=== PATIENT | female | born 1960 | race Caucasian/White ===

== ENCOUNTER 2022-03-05 11:45 | Observation (INO) | payer BC ==
[2022-03-05 13:18] LABS: Basophils # (A) 0.1 k/uL (0-0.2); Basophils % (A) 1 %; Eosinophils # (A) 0.2 k/uL (0-0.7); Eosinophils % (A) 3 %; HCT 43.1 % (34.0-46.0); HGB 14.4 gm/dL (11.4-16.0); Lymphocytes # (A) 1.6 k/uL (1.0-4.8); Lymphocytes % (A) 19 %; MCH 30.4 pg (25.0-35.0); MCHC 33.4 g/dL (31.0-37.0); Monocytes % (A) 13 %; Neutrophils # (A) 5.1 k/uL (1.3-7.7); Neutrophils % (A) 63 %; Platelet Count 311 k/uL (150-450); RBC 4.74 m/uL (3.80-5.40); WBC 8.1 k/uL (3.8-10.6)
--- NOTE | 2022-03-05 13:24 | XR ---
EXAMINATION TYPE: XR chest 2V DATE OF EXAM: 03/05/2022 COMPARISON: None INDICATION: Chest wall lump and edema TECHNIQUE: Frontal and lateral views of the chest are obtained. FINDINGS: The heart size is normal. The pulmonary vasculature is normal. The lungs are clear. IMPRESSION: 1. No acute pulmonary process.
[2022-03-05 13:43] LABS: Appearance,Urine Clear (Clear); Bilirubin,Urine Negative (Negative); Blood,Urine Negative (Negative); Color,Urine Light Yellow; Glucose,Urine (UA) Negative (Negative); Ketones,Urine Negative (Negative); Leukocyte Esterase,Urine Trace (Negative); Nitrite,Urine Negative (Negative); Protein,Urine Negative (Negative); RBC,Urine <1 /hpf (0-5); Specific Gravity,Urine 1.006 (1.001-1.035); Urobilinogen,Urine <2.0 mg/dL (<2.0); WBC,Urine <1 /hpf (0-5)
[2022-03-05 14:28] LABS: ALT 18 U/L (4-34); AST 20 U/L (14-36); African American GFR (CKD) >90 (>60 ml/min/1.73 sqM); Albumin 3.2 g/dL (3.5-5.0); Alkaline Phosphatase 116 U/L (38-126); Anion Gap 4 mmol/L; Blood Urea Nitrogen 14 mg/dL (7-17); Calcium 8.3 mg/dL (8.4-10.2); Carbon Dioxide 35 mmol/L (22-30); Chloride 95 mmol/L (98-107); Creatine Kinase 24 U/L (30-135); Glucose 105 mg/dL (74-99); Lipase 113 U/L (23-300); Magnesium 2.5 mg/dL (1.6-2.3); Non-African American GFR(CKD) >90 (>60 ml/min/1.73 sqM); Potassium 3.4 mmol/L (3.5-5.1); Sodium 134 mmol/L (137-145); Total Bilirubin 0.7 mg/dL (0.2-1.3); Total Protein 5.5 g/dL (6.3-8.2)
--- NOTE | 2022-03-05 15:09 | CT ---
CT CHEST FOR PULMONARY EMBOLISM. EXAMINATION TYPE: CT angio chest DATE OF EXAM: 03/05/2022 INDICATION: pe CT DLP: 312.4 mGycm, Automated exposure control for dose reduction was used. CONTRAST: Patient injected with 60 mL of Isovue 370. COMPARISON: TECHNIQUE: CT of the chest is performed on a spiral scan at 2 mm thick sections. Study is performed with intravenous contrast timed for evaluation for pulmonary embolism. This will limit additional po rtions of the evaluation. 3-D MIP images reconstructed by the technologist are reviewed on the compu ter in the coronal and sagittal planes. FINDINGS: No persistent filling defects are evident to suggest an acute pulmonary embolism. No mediastinal or hilar adenopathy enlarged by CT criteria is evident. The ascending aorta diameter at the level of the main pulmonary artery is 3.2 cm. The main pulmonary artery diameter at the bifur cation is 2.3 cm. There is a 0.3 cm nodule in the periphery of the anterolateral left upper lobe. There is a 0.3 cm nodule in the periphery of the right upper lobe. There is an adjacent 0.4 cm nodule . Slightly more superior there is an additional punctate nodule in the periphery right upper lobe dangelo suring 0.2 cm. There is a 0.8 x 1.1 cm solid nodule in the peripheral anterolateral right upper lobe. Series 406 sharri ge 49. Punctate nodule posterior lateral right mid lung. Series [address] section through the upper abdomen are unremarkable. IMPRESSIONS: 1. No acute pulmonary embolism. 2. Multiple scattered small nodules. The largest nodule is in the anterolateral right upper lobe leighann uring 1.1 x 0.8 cm. Consider additional evaluation with PET/CT.
[2022-03-05] MEDS ORDERED: HYDROmorphone 1 MG/ML 1 ML SYRINGE IVP STA (16:10)
--- NOTE | 2022-03-05 16:27 | ED ---
Extremity Problem HPI - General Chief complaint: Extremity Problem,Nontraumatic Stated complaint: edema Time Seen by Provider: 03/05/22 12:25 Source: patient Mode of arrival: wheelchair Limitations: no limitations - History of Present Illness Initial comments: 62-year-old female with no history of CHF no history of any other medical issues per se recurring heart or pulmonary who complains of 2 days of progressive swelling of both lower extremities also not progressive the left upper extremity. No fevers chills nausea vomiting sweats she states she does have pain she was again repentant does not seem to be helping the pain she also complains of a swollen area toward the sternoclavicular joint on the left also there for perhaps couple days. She also states she had decreased oral intake recently no fevers chills nausea vomiting sweats however she also states she had a history of a pulmonary nodule that was evaluated at one point. No other cu rrent complaints or modifying factors MD Complaint: extremity swelling - Related Data Home Medications Medication Instructions Recorded Confirmed Albuterol Sulfate [Ventolin HFA] 2 puff INHALATION RT-Q6H PRN 03/05/22 03/05/22 Gabapentin [Neurontin] 600 mg PO TID 03/05/22 03/05/22 Meloxicam [Mobic] 15 mg PO DAILY 03/05/22 03/05/22 methocarbamoL [Robaxin] 500 mg PO Q8H PRN 03/05/22 03/05/22 Allergies Allergy/AdvReac Type Severity Reaction Status Date / Time celecoxib [From Celebrex] Allergy Rash/Hives Verified 03/05/22 15:17 Review of Systems ROS Statement: Those systems with pertinent positive or pertinent negative responses have been documented in the HPI. ROS Other: All systems not noted in ROS Statement are negative. Past Medical History Past Medical History: Osteoarthritis (OA) Additional Past Medical History / Comment(s): hypokalemia; DJD History of Any Multi-Drug Resistant Organisms: None Reported Past Surgical History: Cholecystectomy Past Psychological History: No Psychological Hx Reported Smoking Status: Current every day smoker Past Alcohol Use History: None Reported Past Drug Use History: None Reported, Marijuana General Exam - General Exam Comments Initial Comments: This is a well little pulmonary awake alert oriented 4 female Limitations: no limitations General appearance: alert, in no apparent distress Head exam: Present: atraumatic, normocephalic, normal inspection Eye exam: Present: normal appearance, PERRL, EOMI. Absent: scleral icterus, conjunctival injection, periorbital swelling ENT exam: Present: normal exam, mucous membranes moist Neck exam: Present: normal inspection, full ROM, other. Absent: tenderness, meningismus, lymphadenopathy Respiratory exam: Present: normal lung sounds bilaterally. Absent: respiratory distress, wheezes, rales, rhonchi, stridor Cardiovascular Exam: Present: regular rate, normal rhythm, normal heart sounds. Absent: systolic murmur, diastolic murmur, rubs, gallop, clicks GI/Abdominal exam: Present: soft, normal bowel sounds. Absent: distended, tenderness, guarding, rebound, rigid Extremities exam: Present: normal inspection, full ROM, normal capillary refill, pedal edema (Pila edema bilaterally up to both knees additionally left hand and forearm with animal edema no tenderness on palpation tenderness. Capillary refills less than 2 seconds.). Absent: tenderness, joint swelling, calf tenderness Back exam: Present: normal inspection Neurological exam: Present: alert, oriented X3, CN II-XII intact Psychiatric exam: Present: normal affect, normal mood Skin exam: Present: warm, dry, intact, normal color. Absent: rash Course Vital Signs 03/05/22 03/05/22 03/05/22 11:55 13:00 14:00 Temperature 98.9 F Pulse Rate 96 80 Respiratory 18 18 18 Rate Blood Pressure 139/82 140/76 O2 Sat by Pulse 99 98 Oximetry 03/05/22 15:37 Temperature Pulse Rate 78 Respiratory 18 Rate Blood Pressure 141/80 O2 Sat by Pulse 98 Oximetry - Reevaluation(s) Reevaluation #1: 03/05/22 16:28 Chest x-ray reviewed by me and interpreted negative for acute processes do the elevated d-dimer and the patient did have a CAT scan CT angios done. Interpreted by me no evidence of PE however pulmonary nodules are noted to be present this is confirmed on radiology read. Medical Decision Making - Medical Decision Making I did discuss the findings with the patient family and also with Dr. Mcdermott the patient be admitted cardiology and pulmonary consultation. The troponin was elevated though no evidence of EKG changes. CT showed evidence of pulmonary nodules. Sound reviewed and seen by me no evidence of DVT evidence of left popliteal cyst. - Lab Data Result diagrams: 03/05/22 12:28 03/05/22 13:59 Lab Results 03/05/22 03/05/22 03/05/22 Range/Units 12:28 12:28 12:28 WBC 8.1 (3.8-10.6) k/uL RBC 4.74 (3.80-5.40) m/uL Hgb 14.4 (11.4-16.0) gm/dL Hct 43.1 (34.0-46.0) % MCV 91.0 (80.0-100.0) fL MCH 30.4 (25.0-35.0) pg MCHC 33.4 (31.0-37.0) g/dL RDW 13.0 (11.5-15.5) % Plt Count 311 (150-450) k/uL MPV 8.0 Neutrophils % 63 % Lymphocytes % 19 % Monocytes % 13 % Eosinophils % 3 % Basophils % 1 % Neutrophils # 5.1 (1.3-7.7) k/uL Lymphocytes # 1.6 (1.0-4.8) k/uL Monocytes # 1.0 (0-1.0) k/uL Eosinophils # 0.2 (0-0.7) k/uL Basophils # 0.1 (0-0.2) k/uL D-Dimer 2.67 H (<0.60) mg/L FEU Sodium (137-145) mmol/L Potassium (3.5-5.1) mmol/L Chloride (98-107) mmol/L Carbon Dioxide (22-30) mmol/L Anion Gap mmol/L BUN (7-17) mg/dL Creatinine (0.52-1.04) mg/dL Est GFR (CKD-EPI)AfAm (>60 ml/min/1.73 sqM) Est GFR (CKD-EPI)NonAf (>60 ml/min/1.73 sqM) Glucose (74-99) mg/dL Plasma Lactic Acid Yefri (0.7-2.0) mmol/L Calcium (8.4-10.2) mg/dL Magnesium (1.6-2.3) mg/dL Total Bilirubin (0.2-1.3) mg/dL AST (14-36) U/L ALT (4-34) U/L Alkaline Phosphatase (38-126) U/L Creatine Kinase (30-135) U/L Troponin I 0.042 H* (0.000-0.034) ng/mL NT-Pro-B Natriuret Pep pg/mL Total Protein (6.3-8.2) g/dL Albumin (3.5-5.0) g/dL Lipase (23-300) U/L TSH (0.465-4.680) mIU/L Urine Color Urine Appearance (Clear) Urine pH (5.0-8.0) Ur Specific Hercules (1.001-1.035) Urine Protein (Negative) Urine Glucose (UA) (Negative) Urine Ketones (Negative) Urine Blood (Negative) Urine Nitrite (Negative) Urine Bilirubin (Negative) Urine Urobilinogen (<2.0) mg/dL Ur Leukocyte Esterase (Negative) Urine RBC (0-5) /hpf Urine WBC (0-5) /hpf 03/05/22 03/05/22 03/05/22 Range/Units 12:28 13:15 13:59 WBC (3.8-10.6) k/uL RBC (3.80-5.40) m/uL Hgb (11.4-16.0) gm/dL Hct (34.0-46.0) % MCV (80.0-100.0) fL MCH (25.0-35.0) pg MCHC (31.0-37.0) g/dL RDW (11.5-15.5) % Plt Count (150-450) k/uL MPV Neutrophils % % Lymphocytes % % Monocytes % % Eosinophils % % Basophils % % Neutrophils # (1.3-7.7) k/uL Lymphocytes # (1.0-4.8) k/uL Monocytes # (0-1.0) k/uL Eosinophils # (0-0.7) k/uL Basophils # (0-0.2) k/uL D-Dimer (<0.60) mg/L FEU Sodium (137-145) mmol/L Potassium (3.5-5.1) mmol/L Chloride (98-107) mmol/L Carbon Dioxide (22-30) mmol/L Anion Gap mmol/L BUN (7-17) mg/dL Creatinine (0.52-1.04) mg/dL Est GFR (CKD-EPI)AfAm (>60 ml/min/1.73 sqM) Est GFR (CKD-EPI)NonAf (>60 ml/min/1.73 sqM) Glucose (74-99) mg/dL Plasma Lactic Acid Yefri 0.7 (0.7-2.0) mmol/L Calcium (8.4-10.2) mg/dL Magnesium (1.6-2.3) mg/dL Total Bilirubin (0.2-1.3) mg/dL AST (14-36) U/L ALT (4-34) U/L Alkaline Phosphatase (38-126) U/L Creatine Kinase (30-135) U/L Troponin I (0.000-0.034) ng/mL NT-Pro-B Natriuret Pep 183 pg/mL Total Protein (6.3-8.2) g/dL Albumin (3.5-5.0) g/dL Lipase (23-300) U/L TSH (0.465-4.680) mIU/L Urine Color Light Yellow Urine Appearance Clear (Clear) Urine pH 7.0 (5.0-8.0) Ur Specific Hercules 1.006 (1.001-1.035) Urine Protein Negative (Negative) Urine Glucose (UA) Negative (Negative) Urine Ketones Negative (Negative) Urine Blood Negative (Negative) Urine Nitrite Negative (Negative) Urine Bilirubin Negative (Negative) Urine Urobilinogen <2.0 (<2.0) mg/dL Ur Leukocyte Esterase Trace H (Negative) Urine RBC <1 (0-5) /hpf Urine WBC <1 (0-5) /hpf 03/05/22 Range/Units 13:59 WBC (3.8-10.6) k/uL RBC (3.80-5.40) m/uL Hgb (11.4-16.0) gm/dL Hct (34.0-46.0) % MCV (80.0-100.0) fL MCH (25.0-35.0) pg MCHC (31.0-37.0) g/dL RDW (11.5-15.5) % Plt Count (150-450) k/uL MPV Neutrophils % % Lymphocytes % % Monocytes % % Eosinophils % % Basophils % % Neutrophils # (1.3-7.7) k/uL Lymphocytes # (1.0-4.8) k/uL Monocytes # (0-1.0) k/uL Eosinophils # (0-0.7) k/uL Basophils # (0-0.2) k/uL D-Dimer (<0.60) mg/L FEU Sodium 134 L (137-145) mmol/L Potassium 3.4 L (3.5-5.1) mmol/L Chloride 95 L (98-107) mmol/L Carbon Dioxide 35 H (22-30) mmol/L Anion Gap 4 mmol/L BUN 14 (7-17) mg/dL Creatinine 0.55 (0.52-1.04) mg/dL Est GFR (CKD-EPI)AfAm >90 (>60 ml/min/1.73 sqM) Est GFR (CKD-EPI)NonAf >90 (>60 ml/min/1.73 sqM) Glucose 105 H (74-99) mg/dL Plasma Lactic Acid Yefri (0.7-2.0) mmol/L Calcium 8.3 L (8.4-10.2) mg/dL Magnesium 2.5 H (1.6-2.3) mg/dL Total Bilirubin 0.7 (0.2-1.3) mg/dL AST 20 (14-36) U/L ALT 18 (4-34) U/L Alkaline Phosphatase 116 (38-126) U/L Creatine Kinase 24 L (30-135) U/L Troponin I (0.000-0.034) ng/mL NT-Pro-B Natriuret Pep pg/mL Total Protein 5.5 L (6.3-8.2) g/dL Albumin 3.2 L (3.5-5.0) g/dL Lipase 113 (23-300) U/L TSH 1.060 (0.465-4.680) mIU/L Urine Color Urine Appearance (Clear) Urine pH (5.0-8.0) Ur Specific Hercules (1.001-1.035) Urine Protein (Negative) Urine Glucose (UA) (Negative) Urine Ketones (Negative) Urine Blood (Negative) Urine Nitrite (Negative) Urine Bilirubin (Negative) Urine Urobilinogen (<2.0) mg/dL Ur Leukocyte Esterase (Negative) Urine RBC (0-5) /hpf Urine WBC (0-5) /hpf - EKG Data -: EKG Interpreted by Me EKG shows normal: sinus rhythm, axis, intervals, QRS complexes, ST-T waves (EKG shows normal sinus rhythm a 75 ID interval 141 QRS duration 11 daily since QTC 368/397 this is a normal-appearing EKG it was read by me.) Rate: normal - Radiology Data Radiology results: report reviewed (Imaging read by me also report reviewed. Troponin nodules and I CAT scan no PE.), image reviewed Disposition Clinical Impression: Peripheral edema, Elevated troponin, Pulmonary nodules Disposition: ADMITTED IP TO THIS [facility] Condition: Stable Referrals: Nonstaff,Physician [Primary Care Provider] - 1-2 days Decision Date: 03/05/22 Decision Time: 16:00
--- NOTE | 2022-03-05 16:28 | US ---
EXAMINATION TYPE: US venous doppler duplex LE BI DATE OF EXAM: 03/05/2022 4:07 PM COMPARISON: NONE CLINICAL HISTORY: PT is suspected. Leg swelling SIDE PERFORMED: Bilateral TECHNIQUE: The lower extremity deep venous system is examined utilizing real time linear array sonog octavio with graded compression, doppler sonography and color-flow sonography. VESSELS IMAGED: Common Femoral Vein Deep Femoral Vein Greater Saphenous Vein * Femoral Vein Popliteal Vein Small Saphenous Vein * Proximal Calf Veins (* superficial vessels) Right Leg: Negative for DVT Left Leg: Negative for DVT, probable Valiente's Cyst= 4.1 x 1.0 x 2.7 cm IMPRESSION: 1. Bilateral lower extremity ultrasound negative for deep venous thrombosis. 2. Left popliteal cyst
[2022-03-05] MEDS ORDERED: ONDANSETRON 4 MG/2 ML VIAL IVP PRN (16:40)
[2022-03-05] MEDS ORDERED: ACETAMINOPHEN TAB 325 MG TAB PO PRN (16:40)
[2022-03-05] MEDS ORDERED: NALOXONE 0.4 MG/ML 1 ML VIAL IV PRN (16:40)
[2022-03-05] MEDS ORDERED: HEPARIN SODIUM 1,000 UN/ML (10ML VL) IV ONE (16:43)
[2022-03-05] MEDS ORDERED: ALBUTEROL NEBULIZED 2.5 MG/3 ML INHALATION PRN (16:43)
[2022-03-05] MEDS ORDERED: HEPARIN SOD,PORK IN 0.45% NACL 25,000 UNIT in 0.45% NACL 1 250ML.BAG IV SCH (16:45)
[2022-03-05] MEDS: SODIUM CHLORIDE 0.9% 1,000 ML IV SCH (18:06)
[2022-03-05] MEDS: GABAPENTIN 300 MG CAP PO SCH (20:12)
[2022-03-05 22:20] VITALS: TEMP 98.6
[2022-03-05] MEDS: HEPARIN SODIUM 1,000 UN/ML (10ML VL) IV PRN (23:00)
[2022-03-06] MEDS: methocarbamoL 500 MG TAB PO PRN (03:43)
[2022-03-06] MEDS: SODIUM CHLORIDE 0.9% 1,000 ML IV SCH ×2 (03:43→20:04)
[2022-03-06 06:41] LABS: Basophils % (A) 1 %; Eosinophils # (A) 0.2 k/uL (0-0.7); Eosinophils % (A) 3 %; HCT 40.7 % (34.0-46.0); HGB 13.7 gm/dL (11.4-16.0); Lymphocytes # (A) 1.2 k/uL (1.0-4.8); Lymphocytes % (A) 17 %; MCH 30.8 pg (25.0-35.0); MCHC 33.6 g/dL (31.0-37.0); MCV 91.4 fL (80.0-100.0); Mean Platelet Volume 7.5; Monocytes # (A) 0.7 k/uL (0-1.0); Monocytes % (A) 11 %; Neutrophils # (A) 4.6 k/uL (1.3-7.7); Neutrophils % (A) 67 %; Platelet Count 269 k/uL (150-450); RBC 4.45 m/uL (3.80-5.40); WBC 6.9 k/uL (3.8-10.6)
[2022-03-06 06:59] LABS: INR 0.9 (<1.2); Prothrombin Time 9.9 sec (9.0-12.0)
[2022-03-06] MEDS: HEPARIN SODIUM 1,000 UN/ML (10ML VL) IV PRN (07:08)
[2022-03-06] MEDS: MELOXICAM 7.5 MG TAB PO SCH (08:17)
[2022-03-06] MEDS: GABAPENTIN 300 MG CAP PO SCH ×3 (08:18→20:04)
--- NOTE | 2022-03-06 08:23 | P.CRDCN ---
History of Present Illness Consult date: 03/06/22 History of present illness: History of Present Illness: The patient is a 62-year-old female with a known history of chronic tobacco use who presents with progressive peripheral edema. The patient started complaining of muscular skeletal left-sided neck discomfort, was seen by her physician and he initiated treatment, she started been complaining of lower extremities edema and subsequently some left upper extremity edema. She came into the emergency room and in the emergency room her troponin was noted to be mildly elevated. She denies any chest discomfort or prior history of obstructive coronary artery disease. She has no dyspnea on exertion, no recent dizziness or syncope. She had an episode of dizziness in the past and had an event monitor that was unre markable according to her. Her level of activity has not changed. She denies any history of PND, orthopnea or arrhythmia. She had a stress test many years ago that according to her was unremarkable. She has a history of chronic tobacco use. Her troponin was 0.08 and 0.09. Her chest CT showed multiple scattered nodules but no evidence of pulmonary embolism. She was in sinus mechanism. Medications: Robaxin, Mobic, Ventolin, Neurontin Review of Systems: Respiratory: No history of asthma, bronchitis or recent cough. GI: No nausea or vomiting . No history of peptic ulcer disease. No recent GI bleed. : No hematuria or dysuria. Nervous System: No stroke or seizure. Physical Examination: 62-year-old female, alert and oriented no apparent distress,Blood pressure 140/60, Heart rate 70 Head: Normocephalic. Eyes: Sclerae nonicteric. Neck: Good carotid upstroke, no bruit, no jugular venous distention. Lungs: Clear to auscultation. Heart: Regular rate and rhythm, S1-S2, no S3, no rub. No murmur. Left sided neck discomfort and arm discomfort with change in position Abdomen: Soft nontender, positive bowel sounds no organomegaly. Extremities: Trace edema, intact distal pulses. Labs: Hemoglobin 13.7, white blood cell 6.9. BUN 14, creatinine 0.55. Potassium 3.4. Troponin 0.08 and 0.09. Chest x-ray with no acute infiltrate. Computed tomography scan of the chest showed multiple scattered nodules the largest measuring 1.1 x 0.8 cm in the anterolateral right upper lobe Impression: 1. Mild troponin elevation of unclear etiology, no evidence to suggest acute coronary syndrome, patient has no chest discomfort or dyspnea 2. Lung nodules in a smoker, further evaluation will be needed 3. Peripheral edema but no evidence of CHF on examination 4. Chronic tobacco use 5. Muscular skeletal neck discomfort Plan: 1. Obtain an echocardiogram with Doppler 2. Obtain an NT proBNP 3. Stop IV heparin 4. Pulmonary consultations 5. Depending on her progress the patient may require a stress test to further evaluate her cardiac status 6. Depending on the results of the testing further recommendations will be made. Thank you for this consult we will follow with you. Past Medical History Past Medical History: Osteoarthritis (OA) Additional Past Medical History / Comment(s): hypokalemia; DJD History of Any Multi-Drug Resistant Organisms: None Reported Past Surgical History: Cholecystectomy Past Anesthesia/Blood Transfusion Reactions: No Reported Reaction Smoking Status: Current every day smoker - Past Family History Father Family Medical History: No Reported History Medications and Allergies Home Medications Medication Instructions Recorded Confirmed Type Albuterol Sulfate [Ventolin HFA] 2 puff INHALATION RT-Q6H PRN 03/05/22 03/05/22 History Gabapentin [Neurontin] 600 mg PO TID 03/05/22 03/05/22 History Meloxicam [Mobic] 15 mg PO DAILY 03/05/22 03/05/22 History methocarbamoL [Robaxin] 500 mg PO Q8H PRN 03/05/22 03/05/22 History Allergies Allergy/AdvReac Type Severity Reaction Status Date / Time celecoxib [From Celebrex] Allergy Rash/Hives Verified 03/05/22 15:17 Physical Exam Vitals: Vital Signs Temp Pulse Pulse Resp BP BP Pulse Ox 03/06/22 04:00 78 16 181/79 95 03/06/22 00:00 78 16 141/65 97 03/05/22 20:00 98.6 F 82 18 130/65 96 03/05/22 18:54 99.1 F 78 20 159/71 95 03/05/22 18:04 98.8 F 78 18 142/84 97 03/05/22 17:00 72 18 03/05/22 15:37 78 18 141/80 98 03/05/22 14:00 80 18 140/76 98 03/05/22 13:00 18 03/05/22 11:55 98.9 F 96 18 139/82 99 Intake and Output 03/05/22 03/06/22 03/06/22 22:59 06:59 14:59 Intake Total 333 1521.415 70.47 Balance 333 1521.415 70.47 Intake: Intake, IV Titration 1036.415 70.47 Amount Heparin Sod,Pork in 0.45% 36.415 70.47 NaCl 25,000 unit In 0.45 % NaCl 1 250ml.bag @ 12 UNITS/KG/HR 7.457 mls/hr IV .Q24H FRANCIS Rx#: [id number] Sodium Chloride 0.9% 1, 1000 000 ml @ 75 mls/hr IV . [id number] FRANCIS Rx#:[id number] Oral 333 [id number] Other: Voiding Method Toilet Toilet # Voids 2 Weight 62.142 kg Results 03/06/22 06:25 03/05/22 13:59 Cardiac Enzymes 03/05/22 03/05/22 03/05/22 Range/Units 12:28 13:59 18:34 AST 20 (14-36) U/L Troponin I 0.042 H* 0.080 H* (0.000-0.034) ng/mL 03/05/22 Range/Units 22:22 AST (14-36) U/L Troponin I 0.092 H* (0.000-0.034) ng/mL Coagulation 03/05/22 03/06/22 03/06/22 Range/Units 22:22 06:25 06:25 PT 9.9 (9.0-12.0) sec APTT 35.6 H 32.9 H (22.0-30.0) sec CBC 03/05/22 03/06/22 Range/Units 12:28 06:25 WBC 8.1 6.9 (3.8-10.6) k/uL RBC 4.74 4.45 (3.80-5.40) m/uL Hgb 14.4 13.7 (11.4-16.0) gm/dL Hct 43.1 40.7 (34.0-46.0) % Plt Count 311 269 (150-450) k/uL Comprehensive Metabolic Panel 03/05/22 Range/Units 13:59 Sodium 134 L (137-145) mmol/L Potassium 3.4 L (3.5-5.1) mmol/L Chloride 95 L (98-107) mmol/L Carbon Dioxide 35 H (22-30) mmol/L BUN 14 (7-17) mg/dL Creatinine 0.55 (0.52-1.04) mg/dL Glucose 105 H (74-99) mg/dL Calcium 8.3 L (8.4-10.2) mg/dL AST 20 (14-36) U/L ALT 18 (4-34) U/L Alkaline Phosphatase 116 (38-126) U/L Total Protein 5.5 L (6.3-8.2) g/dL Albumin 3.2 L (3.5-5.0) g/dL Current Medications Generic Name Dose Route Start Last Admin Trade Name Freq PRN Reason Stop Dose Admin Acetaminophen 650 mg 03/05/22 16:40 Acetaminophen Tab 325 Mg Tab PO Q6HR PRN Mild Pain or Fever > 100.5 Albuterol Sulfate 2.5 mg 03/05/22 16:43 Albuterol Nebulized 2.5 Mg/3 Ml INHALATION RT-Q6H PRN Shortness Of Breath Gabapentin 600 mg 03/05/22 22:00 03/05/22 20:12 Gabapentin 300 Mg Cap PO 600 mg TID FRANCIS Administration Heparin Sodium (Porcine) 0 unit 03/05/22 16:43 03/06/22 07:08 Heparin Sodium 1,000 Un/Ml (10ml Vl) IV 3,100 unit PER PROTOCOL PRN Administration Low PTT Protocol Sodium Chloride 1,000 mls @ 75 mls/hr 03/05/22 16:45 03/06/22 03:43 Saline 0.9% IV 75 mls/hr .[id number] FRANCIS Administration Heparin Sodium/Sodium Chloride 250 mls @ 7.457 mls/hr 03/05/22 16:45 03/06/22 07:06 25,000 unit/ Sodium Chloride IV 17 units/kg/hr .Q24H FRANCIS 10.564 mls/hr Titration Protocol 12 UNITS/KG/HR Meloxicam 15 mg 03/06/22 09:00 Meloxicam 7.5 Mg Tab PO DAILY FRANCIS Methocarbamol 500 mg 03/05/22 16:43 03/06/22 03:43 Methocarbamol 500 Mg Tab PO 500 mg Q8H PRN Administration Pain Naloxone HCl 0.2 mg 03/05/22 16:40 Naloxone 0.4 Mg/Ml 1 Ml Vial IV Q2M PRN Opioid Reversal Ondansetron HCl 4 mg 03/05/22 16:40 Ondansetron 4 Mg/2 Ml Vial IVP Q8HR PRN Nausea And Vomiting Intake and Output 03/05/22 03/06/22 03/06/22 22:59 06:59 14:59 Intake Total 333 1521.415 70.47 Balance 333 1521.415 70.47 Intake: Intake, IV Titration 1036.415 70.47 Amount Heparin Sod,Pork in 0.45% 36.415 70.47 NaCl 25,000 unit In 0.45 % NaCl 1 250ml.bag @ 12 UNITS/KG/HR 7.457 mls/hr IV .Q24H FRANCIS Rx#: [id number] Sodium Chloride 0.9% 1, 1000 000 ml @ 75 mls/hr IV . [id number] FRANCIS Rx#:[id number] Oral 333 [id number] Other: Voiding Method Toilet Toilet # Voids 2 Weight 62.142 kg 03/06/22 06:25 03/05/22 13:59
[2022-03-06] MEDS: ASPIRIN 81 MG PO SCH (08:31)
--- NOTE | 2022-03-06 11:12 | P.HPIM ---
History of Present Illness H&P Date: 03/06/22 Chief Complaint: Leg swelling Patient is a 62-year-old female with a known history of osteoarthritis, currently with a smoker and degenerative joint disease presents to ER with the complaints of worsening leg swelling. Patient has been having swelling of both left greater than right The lateral lower extremity duplex scan is negative for DVT Chest x-ray showed no acute cardio pulmonary process CTA chest showed no acute pulmonary embolism. There was scattered small nod ules. The largest nodule is the anterolateral right upper lobe measuring 1.1 x 0.8 cm. Consider additional evaluation with PET CT. Laboratory data WBC 8.1 hemoglobin 14.4 and platelets 311 d-dimer is 2.67 Sodium 134 potassium 3.4 chloride 95 bicarb is 75 BUN 14 and creatinine 0.55 and blood sugar is 105 Urinalysis is negative for infection. This is within normal limits. ProBNP is 183 Troponin 0.042, 0.080 and 0.092 Review of Systems Constitutional: Patient denies any fever or chills . No generalized weakness or weight loss. Abdomen: Patient denied nausea vomiting and diarrhea and abdominal pain. Cardiovascular: Patient denies any chest pain or short of breath no palpitations. Leg swelling. Left greater than right. Respiratory: patient denied any cough is from production. No shortness of breath Neurologic: Patient denied any numbness or tingling headache. Musculoskeletal: Patient denies any complaints of joint swelling or deformity. Complains of left-sided neck pain and shoulder pain Skin: Negative Psychiatric: Negative Endocrine: No heat or cold intolerance. No recent weight gain. Genitourinary: No dysuria or hematuria. All other 14 point ROS negative except the above Past Medical History Past Medical History: Osteoarthritis (OA) Additional Past Medical History / Comment(s): hypokalemia; DJD History of Any Multi-Drug Resistant Organisms: None Reported Past Surgical History: Cholecystectomy Past Anesthesia/Blood Transfusion Reactions: No Reported Reaction Smoking Status: Current every day smoker - Past Family History Father Family Medical History: No Reported History Medications and Allergies Home Medications Medication Instructions Recorded Confirmed Type Albuterol Sulfate [Ventolin HFA] 2 puff INHALATION RT-Q6H PRN 03/05/22 03/05/22 History Gabapentin [Neurontin] 600 mg PO TID 03/05/22 03/05/22 History Meloxicam [Mobic] 15 mg PO DAILY 03/05/22 03/05/22 History methocarbamoL [Robaxin] 500 mg PO Q8H PRN 03/05/22 03/05/22 History Allergies Allergy/AdvReac Type Severity Reaction Status Date / Time celecoxib [From Celebrex] Allergy Rash/Hives Verified 03/05/22 15:17 Physical Exam Vitals: Vital Signs Temp Pulse Pulse Resp BP BP Pulse Ox 03/06/22 08:20 81 03/06/22 08:19 81 17 167/78 96 03/06/22 04:00 78 16 181/79 95 03/06/22 00:00 78 16 141/65 97 03/05/22 20:00 98.6 F 82 18 130/65 96 03/05/22 18:54 99.1 F 78 20 159/71 95 03/05/22 18:04 98.8 F 78 18 142/84 97 03/05/22 17:00 72 18 03/05/22 15:37 78 18 141/80 98 03/05/22 14:00 80 18 140/76 98 03/05/22 13:00 18 03/05/22 11:55 98.9 F 96 18 139/82 99 Intake and Output 03/05/22 03/06/22 03/06/22 22:59 06:59 14:59 Intake Total 333 1521.415 487.47 Balance 333 1521.415 487.47 Intake: Intake, IV Titration 1036.415 70.47 Amount Heparin Sod,Pork in 0.45% 36.415 70.47 NaCl 25,000 unit In 0.45 % NaCl 1 250ml.bag @ 12 UNITS/KG/HR 7.457 mls/hr IV .Q24H [facility] Rx#: [id number] Sodium Chloride 0.9% 1, 1000 000 ml @ 75 mls/hr IV . [id number] [facility] Rx#:[id number] Oral 333 [id number] Other: Voiding Method Toilet Toilet Toilet # Voids 2 Weight 62.142 kg PHYSICAL EXAMINATION: Patient is lying in the bed comfortably, no acute distress, awake alert and oriented.. HEENT: Normocephalic. Neck is supple. Pupils reactive. Nostrils clear. Oral cavity is moist. Neck reveals no JVD, carotid bruits, or thyromegaly. CHEST EXAMINATION: Trachea is central. Symmetrical expansion. Lung pat clear to auscultation and percussion. CARDIAC: Normal S1, S2 with no gallops. No murmurs ABDOMEN: Soft. Bowel sounds normal. No organomegaly. No abdominal bruits. Extremities: Bilateral lower extremity trace edema. No clubbing or cyanosis Neurologically awake, alert, oriented x3 with well-coordinated movements. No focal deficits noted Skin: No rash or skin lesions. Psychiatric: Coperative. Nonsuicidal Musculoskeletal: No joint swelling or deformity. Normal range of motion. Results CBC & Chem 7: 03/06/22 06:25 03/05/22 13:59 Labs: Abnormal Lab Results - Last 24 Hours (Table) 03/05/22 03/05/22 03/05/22 Range/Units 12:28 12:28 13:15 APTT (22.0-30.0) sec D-Dimer 2.67 H (<0.60) mg/L FEU Sodium (137-145) mmol/L Potassium (3.5-5.1) mmol/L Chloride (98-107) mmol/L Carbon Dioxide (22-30) mmol/L Glucose (74-99) mg/dL Calcium (8.4-10.2) mg/dL Magnesium (1.6-2.3) mg/dL Creatine Kinase (30-135) U/L Troponin I 0.042 H* (0.000-0.034) ng/mL Total Protein (6.3-8.2) g/dL Albumin (3.5-5.0) g/dL Ur Leukocyte Esterase Trace H (Negative) 03/05/22 03/05/22 03/05/22 Range/Units 13:59 18:34 22:22 APTT (22.0-30.0) sec D-Dimer (<0.60) mg/L FEU Sodium 134 L (137-145) mmol/L Potassium 3.4 L (3.5-5.1) mmol/L Chloride 95 L (98-107) mmol/L Carbon Dioxide 35 H (22-30) mmol/L Glucose 105 H (74-99) mg/dL Calcium 8.3 L (8.4-10.2) mg/dL Magnesium 2.5 H (1.6-2.3) mg/dL Creatine Kinase 24 L (30-135) U/L Troponin I 0.080 H* 0.092 H* (0.000-0.034) ng/mL Total Protein 5.5 L (6.3-8.2) g/dL Albumin 3.2 L (3.5-5.0) g/dL Ur Leukocyte Esterase (Negative) 03/05/22 03/06/22 Range/Units 22:22 06:25 APTT 35.6 H 32.9 H (22.0-30.0) sec D-Dimer (<0.60) mg/L FEU Sodium (137-145) mmol/L Potassium (3.5-5.1) mmol/L Chloride (98-107) mmol/L Carbon Dioxide (22-30) mmol/L Glucose (74-99) mg/dL Calcium (8.4-10.2) mg/dL Magnesium (1.6-2.3) mg/dL Creatine Kinase (30-135) U/L Troponin I (0.000-0.034) ng/mL Total Protein (6.3-8.2) g/dL Albumin (3.5-5.0) g/dL Ur Leukocyte Esterase (Negative) Thrombosis Risk Factor Assmnt - DVT/VTE Prophylaxis DVT/VTE Prophylaxis: Pharmacologic Prophylaxis ordered - Choose All That Apply Each Factor Represents 1 point: Acute NH, Swollen legs (current) Other Risk Factors: No Each Risk Factor Represents 2 Points: Age 61-74 years Other congenital or acquired thrombophilia - If yes, enter type in comment: No Thrombosis Risk Factor Assessment Total Risk Factor Score: 4 Thrombosis Risk Factor Assessment Level: Moderate Risk Assessment and Plan Assessment: Shortness of breath without evidence of CHF or PE. BNP is not elevated. CTA negative. Leg swelling improved now.Duplex scan is Negative for DVT. Elevated troponin level. Rule out ACS. Lung nodules. Largest measuring 1.1 x 0.8 cm. Elevated d-dimer level. CTA negative for PE. Ongoing nicotine addiction Chronic neck pain and left shoulder pain. Likely musculoskeletal. Osteoarthritis and degenerative joint disease DVT prophylaxis Plan: Patient will be continued on telemetry monitoring. Started on heparin drip which has been discontinued. Patient was seen by cardiology. Unlikely ACS. 2- D echocardiogram was obtained. Patient was seen by pulmonary and recommended PET scan as outpatient. Continue with albuterol inhalation when necessary. Continue pain management and follow closely. Smoking cessation has been counseled extensively. Time with Patient: Greater than 30
--- NOTE | 2022-03-06 11:31 | P.CNPUL ---
History of Present Illness Consult date: 03/06/22 Requesting physician: Martin Mcdermott Reason for consult: other Chief complaint: Abnormal lab test. History of present illness: Pulmonary consult dated 03/06/2022. 62-year-old smoker, who I'm asked to see because of an abnormal D-dimer test. She apparently came in with complaints of lower extremity edema, and concerns about congestive heart failure. She apparently not been doing well for about 2 days prior to admission. She noticed swelling of her feet, ankles, and lower thigh area. Anyway, she denied fever, chills, nausea, vomiting, sweats, and she also denied any shortness of breath. She had a D-dimer test that was elevated. Dopplers were done of the lower extremities, which were negative for DVT. She also had a CT angiogram that was negative for pulmonary embolism. The computed tomography scan did show some abnormalities, and she will need outpatient evaluation. She has been smoking cigarettes for a number of years. She's currently on room air. She's getting saline at 75 mL an hour. She is on IV heparin as per cardiology. Her medical history is primarily positive for osteoarthritis. CBC is normal. PTT is 32.9. Sodium 134, potassium 3.4, chlorides 95, CO2 35, BUN 14, creatinine 0.55. Troponins were 0.080 and 0.092. N-terminal proBNP was 507. Urine was negative. CT angiogram showed some multiple scattered small nodules, the largest of which is in the right upper lobe, measuring about 1 cm. A PET scan was recommended. Review of Systems REVIEW OF SYSTEMS: CONSTITUTIONAL: [Negative.] NEUROLOGIC: [ Negative.] HEENT: [ Negative.] CARDIAC: Lower extremity edema. PULMONARY: [Negative.] GI: [Negative.] : [Negative.] RHEUMATOLOGIC: [ Negative.] IMMUNOLOGIC: [ Negative.] ENDOCRINE: [Negative. ] DERMATOLOGIC: [Negative.] Past Medical History Past Medical History: Osteoarthritis (OA) Additional Past Medical History / Comment(s): hypokalemia; DJD History of Any Multi-Drug Resistant Organisms: None Reported Past Surgical History: Cholecystectomy Past Anesthesia/Blood Transfusion Reactions: No Reported Reaction Smoking Status: Current every day smoker - Past Family History Father Family Medical History: No Reported History Medications and Allergies Home Medications Medication Instructions Recorded Confirmed Type Albuterol Sulfate [Ventolin HFA] 2 puff INHALATION RT-Q6H PRN 03/05/22 03/05/22 History Gabapentin [Neurontin] 600 mg PO TID 03/05/22 03/05/22 History Meloxicam [Mobic] 15 mg PO DAILY 03/05/22 03/05/22 History methocarbamoL [Robaxin] 500 mg PO Q8H PRN 03/05/22 03/05/22 History Allergies Allergy/AdvReac Type Severity Reaction Status Date / Time celecoxib [From Celebrex] Allergy Rash/Hives Verified 03/05/22 15:17 Physical Exam Osteopathic Statement: *. No significant issues noted on an osteopathic structural exam other than those noted in the History and Physical/Consult. Vitals: Vital Signs Temp Pulse Pulse Resp BP BP Pulse Ox 03/06/22 11:13 80 15 125/72 95 03/06/22 08:20 81 03/06/22 08:19 81 17 167/78 96 03/06/22 04:00 78 16 181/79 95 03/06/22 00:00 78 16 141/65 97 03/05/22 20:00 98.6 F 82 18 130/65 96 03/05/22 18:54 99.1 F 78 20 159/71 95 03/05/22 18:04 98.8 F 78 18 142/84 97 03/05/22 17:00 72 18 03/05/22 15:37 78 18 141/80 98 03/05/22 14:00 80 18 140/76 98 03/05/22 13:00 18 03/05/22 11:55 98.9 F 96 18 139/82 99 Intake and Output 03/05/22 03/06/22 03/06/22 22:59 06:59 14:59 Intake Total 333 1521.415 487.47 Balance 333 1521.415 487.47 Intake: Intake, IV Titration 1036.415 70.47 Amount Heparin Sod,Pork in 0.45% 36.415 70.47 NaCl 25,000 unit In 0.45 % NaCl 1 250ml.bag @ 12 UNITS/KG/HR 7.457 mls/hr IV .Q24H [facility] Rx#: [id number] Sodium Chloride 0.9% 1, 1000 000 ml @ 75 mls/hr IV . [id number] [facility] Rx#:[id number] Oral 333 [id number] Other: Voiding Method Toilet Toilet Toilet # Voids 2 Weight 62.142 kg No acute distress, oriented 3. Currently on room air. No respiratory difficulty. HEENT examination is grossly unremarkable. Neck supple. Full range of motion. No adenopathy thyromegaly or neck vein distention. Cardiovascular examination reveals regular rhythm rate. S1-S2 normal. No S3 or S4. No discernible murmur noted. Heart rate 80 bpm. Lungs reveal clear breath sounds. Breath sounds are equal bilaterally. No adventitious lung sounds including wheezes rhonchi or crackles. Room air saturation is 95-96%. Abdomen soft bowel sounds are heard. No masses or tenderness. Extremities are intact. No cyanosis or clubbing. Trace edema present. Skin is without rash or lesion. Neurologic examination is brief but nonfocal. Results - Laboratory Findings CBC and BMP: 03/06/22 06:25 03/05/22 13:59 PT/INR, D-dimer PT 9.9 sec (9.0-12.0) 03/06/22 06:25 INR 0.9 (<1.2) 03/06/22 06:25 D-Dimer 2.67 mg/L FEU (<0.60) H 03/05/22 12:28 Abnormal lab findings: Abnormal Labs 03/05/22 03/05/22 03/05/22 12:28 12:28 13:15 APTT D-Dimer 2.67 H Sodium Potassium Chloride Carbon Dioxide Glucose Calcium Magnesium Creatine Kinase Troponin I 0.042 H* Total Protein Albumin Ur Leukocyte Esterase Trace H 03/05/22 03/05/22 03/05/22 13:59 18:34 22:22 APTT D-Dimer Sodium 134 L Potassium 3.4 L Chloride 95 L Carbon Dioxide 35 H Glucose 105 H Calcium 8.3 L Magnesium 2.5 H Creatine Kinase 24 L Troponin I 0.080 H* 0.092 H* Total Protein 5.5 L Albumin 3.2 L Ur Leukocyte Esterase 03/05/22 03/06/22 22:22 06:25 APTT 35.6 H 32.9 H D-Dimer Sodium Potassium Chloride Carbon Dioxide Glucose Calcium Magnesium Creatine Kinase Troponin I Total Protein Albumin Ur Leukocyte Esterase - Diagnostic Findings Chest x-ray: image reviewed CT scan - chest: image reviewed Assessment and Plan Assessment: Elevated d-dimer, without evidence of DVT on Doppler, or pulmonary embolism on CT angiogram. Multiple small pulmonary nodules, which will need outpatient evaluation. History of ongoing tobacco use with nicotine addiction. Patient currently being evaluated by cardiology for non-ST segment elevation myocardial infarction. History of osteoarthritis. History of ongoing tobacco dependence/nicotine addiction. Plan: Plan dated 03/06/2022. The patient is counseled about the importance of smoking cessation. The patient will follow-up in the office with me, to evaluate further, the pulmonary nodules. The patient will likely benefit from a PET/CT fusion study. Additional recommendations and suggestions are forthcoming. The patient denies any respiratory issues. Prognosis is guarded. We will continue to follow. Time with Patient: Greater than 30
[2022-03-06] MEDS: HEPARIN SODIUM,PORCINE/PF 5,000 UNIT/0.5 ML SYRINGE SQ SCH ×2 (16:01→23:35)
[2022-03-06 16:02] LABS: Chol/HDL Ratio 3.31 Ratio; LDL Cholesterol,Calculated 124.2 mg/dL (0.0-131.0)
--- NOTE | 2022-03-06 16:36 | CA ---
Transthoracic Echo Report Name: Ana María Tom Age: 62 Gender: F : 1960 Exam Date: 03/06/2022 13:11 Exam Location: [facility] Ht (in): 61 Wt (lb): 137 Ordering Physician: Ralf Marcelo MD ([id number]) Attending/Referring Phys: Astrobiologist Mine Villalba RDCS Procedure CPT: Indications: edema Cardiac Hx: Technical Quality: Good Contrast 1: Total Dose (mL): Contrast 2: Total Dose (mL): MEASUREMENTS (Male / Female) Normal Values 2D ECHO LV Diastolic Diameter PLAX 4.8 cm 4.2 - 5.9 / 3.9 - 5.3 cm LV Systolic Diameter PLAX 3.2 cm IVS Diastolic Thickness 0.9 cm 0.6 - 1.0 / 0.6 - 0.9 cm LVPW Diastolic Thickness 1.0 cm 0.6 - 1.0 / 0.6 - 0.9 cm LV Relative Wall Thickness 0.4 RV Internal Dim ED PLAX 2.9 cm LA Systolic Diameter LX 3.2 cm 3.0 - 4.0 / 2.7 - 3.8 cm LA Volume 32.7 cm??? 18 - 58 / 22 - 52 cm??? M-MODE Aortic Root Diameter MM 3.0 cm MV E Point Septal Separation 0.6 cm AV Cusp Separation MM 1.9 cm DOPPLER AV Peak Velocity 158.3 cm/s AV Peak Gradient 10.0 mmHg MV Area PHT 4.9 cm??? Mitral E Point Velocity 104.4 cm/s Mitral A Point Velocity 84.3 cm/s Mitral E to A Ratio 1.2 MV Deceleration Time 153.7 ms MV E' Velocity 8.7 cm/s Mitral E to MV E' Ratio 12.0 FINDINGS Left Ventricle Left ventricular ejection fraction is estimated at 55-60 %. Left ventricular cavity size normal. Left ventricular wall thickness normal. Right Ventricle Normal right ventricular size and function. Unable to estimate the right ventricular systolic pressure. Right Atrium Normal right atrial size. Left Atrium Normal left atrial size. No evidence for an atrial septal defect. Mitral Valve Structurally normal mitral valve. Trace mitral regurgitation. Aortic Valve Trileaflet aortic valve. No aortic stenosis. Trace to mild aortic regurgitation. Tricuspid Valve Structurally normal tricuspid valve. No tricuspid stenosis, regurgitation or prolapse. Pulmonic Valve Structurally normal pulmonic valve. No pulmonic regurgitation. Pericardium Normal pericardium. No pericardial effusion. Aorta Normal size aortic root and proximal ascending aorta. CONCLUSIONS Normal LV systolic function Previewed by: Dr. Jose A Orr MD (Electronically Signed) Final Date: 06 March 2022 16:35
[2022-03-07] MEDS: methocarbamoL 500 MG TAB PO PRN (01:19)
[2022-03-07] MEDS: GABAPENTIN 300 MG CAP PO SCH ×2 (09:05→15:39)
[2022-03-07] MEDS: ASPIRIN 81 MG PO SCH (09:05)
[2022-03-07] MEDS: MELOXICAM 7.5 MG TAB PO SCH (09:05)
[2022-03-07] MEDS: HEPARIN SODIUM,PORCINE/PF 5,000 UNIT/0.5 ML SYRINGE SQ SCH ×2 (09:07→15:39)
[2022-03-07] MEDS: SODIUM CHLORIDE 0.9% 1,000 ML IV SCH (09:10)
--- NOTE | 2022-03-07 10:01 | P.PN ---
Subjective Progress Note Date: 03/07/22 PROGRESS NOTE The patient is a 62-year-old female with a known history of chronic tobacco use who presents with progressive peripheral edema. The patient started complaining of muscular skeletal left-sided neck discomfort, was seen by her physician and he initiated treatment, she started been complaining of lower extremities edema and subsequently some left upper extremity edema. She came into the emergency room and in the emergency room her troponin was noted to be mildly elevated. She denies any chest discomfort or prior history of obstructive coronary artery disease. She has no dyspnea on exertion, no recent dizziness or syncope. She had an episode of dizziness in the past and had an event monitor that was unremarkable according to her. Her level of activity has not changed. She denies any history of PND, orthopnea or arrhythmia. She had a stress test many years ago that according to her was unremarkable. She has a history of chronic tobacco use. Her troponin was 0.08 and 0.09. Her chest CT showed multiple scattered nodules but no evidence of pulmonary embolism. She was in sinus mechanism. March 07: The patient is feeling better today, her peripheral edema resolved. She continues to have musculoskeletal left-sided neck discomfort. Her breathing is stable. She denies any dizziness or palpitations. She denies any nausea or vomiting. She continues to be in sinus mechanism. She was evaluated by Dr. Pace who recommended to undergo a PET scan as an outpatient. She had an echocardiogram that showed a normal left ventricle size and systolic function with no significant valvular abnormalities. Medications: Aspirin, heparin subcu, Robaxin, Neurontin PHYSICAL EXAMINATION: Blood pressure 147/80 heart rate 70 LUNGS: Clear to auscultation HEART: Regular rate and rhythm, S1, S2. No S3. No systolic murmur ABDOMEN: Soft, nontender, no organomegaly EXTREMETIES: No edema LAB: Pending IMPRESSION: 1. Peripheral edema, resolved, no evidence of significant CHF, her NT proBNP was normal 2. Lung nodules, workup in progress 3. Troponin elevations, no evidence of acute coronary syndrome, type II event 4. Chronic tobacco use 5. Hyperlipidemia PLAN: 1. Stable from the cardiac standpoint to be discharged home 2. Smoking cessation 3. Follow-up as an outpatient for further cardiac workup 4. Initiate statin for hyperlipidemia Objective - Vital Signs Vital signs: Vital Signs Temp 98.6 F 03/05/22 20:00 Pulse 75 03/07/22 09:14 Resp 18 03/07/22 09:14 BP 147/81 03/07/22 09:14 Pulse Ox 97 03/07/22 09:14 FiO2 Intake & Output 03/06/22 03/07/22 03/07/22 18:59 06:59 18:59 Intake Total 1201.47 1485 Balance 1201.47 1485 Intake: Intake, IV Titration 70.47 1000 Amount Heparin Sod,Pork in 0.45% 70.47 NaCl 25,000 unit In 0.45 % NaCl 1 250ml.bag @ 12 UNITS/KG/HR 7.457 mls/hr IV .Q24H [facility] Rx#: [id number] Sodium Chloride 0.9% 1, 1000 000 ml @ 75 mls/hr IV . [id number] [facility] Rx#:[id number] Oral [id number] Other: Voiding Method Toilet Toilet Toilet # Voids 1 2 - Labs CBC & Chem 7: 03/06/22 06:25 03/05/22 13:59 Labs: Abnormal Lab Results - Last 24 Hours (Table) 03/05/22 Range/Units 13:59 Cholesterol 207.00 H (0.00-200.00) mg/dL HDL Cholesterol 62.60 H (40.00-60.00) mg/dL
[2022-03-07] MEDS ORDERED: ATORVASTATIN 20 MG TAB PO SCH (10:15)
[2022-03-07 11:09] VITALS: PULSE 91; RESP 16
[2022-03-07 15:43] VITALS: BP 145/75
== END 2022-03-07 18:09 | disposition home or self-care (01) ==
LOC: EC 11:45 → 3SCARD 16:40
PROVIDERS: ADMIT Internal Medicine; ATTEND Internal Medicine
DX: R60.0 Localized edema (principal); R91.8 Other nonspecific abnormal finding of lung field; R77.8 Other specified abnormalities of plasma proteins; E78.5 Hyperlipidemia, unspecified; E87.6 Hypokalemia; M71.22 Synovial cyst of popliteal space [Baker], left knee; F17.210 Nicotine dependence, cigarettes, uncomplicated; F12.90 Cannabis use, unspecified, uncomplicated; M54.2 Cervicalgia; M25.512 Pain in left shoulder; G89.29 Other chronic pain; I08.0 Rheumatic disorders of both mitral and aortic valves; Z79.899 Other long term (current) drug therapy; Z79.1 Long term (current) use of non-steroidal anti-inflammatories (NSAID); Z88.8 Allergy status to other drugs, medicaments and biological substances; Z90.49 Acquired absence of other specified parts of digestive tract
CPT/HCPCS: 96376 ×2; 96361 ×2; 96372 ×2; 96374; 96375; 99285; 36415; 93005; 93306; 85379; 83880 ×2; 80061; 80053; 84443; 82550; 83605; 83690; 83735; 84484; 85025 ×2; 85610; 85730 ×2; 81001; 71046; 93970; 71275; G0378 ×3; J1644 ×5; J1170; Q9967

== ENCOUNTER 2022-03-17 11:19 | Inpatient (IN) | payer BC, OTHER ==
--- NOTE | 2022-03-17 12:49 | ED ---
General Adult HPI - General Chief complaint: Recheck/Abnormal Lab/Rx Stated complaint: Lump on Chest, Difficulty Swallowing Time Seen by Provider: 03/17/22 12:33 Source: patient, family, RN notes reviewed, old records reviewed Mode of arrival: ambulatory Limitations: no limitations - History of Present Illness Initial comments: 52-year-old female presents to the emergency room with complaints of left-sided neck pain and swelling for 2 weeks. She states that she was in the hospital last week and discharged on March 05. She was found to have lung nodules and is scheduled to have a PET scan and a follow-up with cardiology but not until next month. She states that the swelling of her neck has increased and now she has a sore throat and loss of appetite. -: week(s) Location: neck Severity scale (1-10): 8 Quality: constant Consistency: constant Improves with: none Worsens with: movement Associated Symptoms: loss of appetite, other (sore throat) - Related Data Home Medications Medication Instructions Recorded Confirmed Albuterol Sulfate [Ventolin HFA] 2 puff INHALATION RT-Q6H PRN 03/05/22 03/17/22 Gabapentin [Neurontin] 600 mg PO TID 03/05/22 03/17/22 Meloxicam [Mobic] 15 mg PO DAILY 03/05/22 03/17/22 methocarbamoL [Robaxin] 500 mg PO Q8H PRN 03/05/22 03/17/22 Previous Rx's Medication Instructions Recorded Aspirin 81 mg PO DAILY #30 tab 03/07/22 Allergies Allergy/AdvReac Type Severity Reaction Status Date / Time celecoxib [From Celebrex] Allergy Rash/Hives Verified 03/17/22 14:26 Review of Systems ROS Statement: Those systems with pertinent positive or pertinent negative responses have been documented in the HPI. ROS Other: All systems not noted in ROS Statement are negative. Past Medical History Past Medical History: Osteoarthritis (OA), Rheumatoid Arthritis (RA) Additional Past Medical History / Comment(s): hypokalemia; DJD History of Any Multi-Drug Resistant Organisms: None Reported Past Surgical History: Cholecystectomy Past Anesthesia/Blood Transfusion Reactions: No Reported Reaction Past Psychological History: No Psychological Hx Reported Smoking Status: Former smoker Past Alcohol Use History: None Reported Past Drug Use History: Marijuana - Past Family History Father Family Medical History: No Reported History General Exam Limitations: no limitations General appearance: alert, in no apparent distress Head exam: Present: atraumatic, normocephalic, normal inspection Eye exam: Absent: scleral icterus, conjunctival injection, periorbital swelling ENT exam: Present: normal oropharynx, mucous membranes moist Neck exam: Present: normal inspection, tenderness, other (left sided neck/supraclavicular swelling). Absent: meningismus Respiratory exam: Present: normal lung sounds bilaterally. Absent: respiratory distress, wheezes, rales, rhonchi, stridor, chest wall tenderness, accessory muscle use Cardiovascular Exam: Present: tachycardia GI/Abdominal exam: Present: soft. Absent: distended, tenderness, rigid Extremities exam: Present: normal capillary refill. Absent: pedal edema Back exam: Absent: tenderness, CVA tenderness (R), CVA tenderness (L), rash noted Neurological exam: Present: alert, oriented X3 Psychiatric exam: Present: normal affect, normal mood Skin exam: Present: warm, dry, normal color, other (Supraclavicular mass on the left). Absent: cyanosis, diaphoretic, petechiae, pallor Course Vital Signs 03/17/22 03/17/22 11:42 15:20 Temperature 98.8 F 98.0 F Pulse Rate 123 H 84 Respiratory 22 16 Rate Blood Pressure 134/76 129/89 O2 Sat by Pulse 98 98 Oximetry Medical Decision Making - Medical Decision Making Patient presents with increased pain and swelling to her left side of her neck for over 2 weeks. She denies any fevers, difficulty breathing or difficulty swallowing. Voice is clear. No concern for retropharyngeal abscess. She is scheduled to have a PET scan on an outpatient basis next month for evaluation of the pulmonary nodules found on last admission. Ultrasound of left supraclavicular mass reviewed by me shows a solid mass. Radiologist interpretation is a 4.1 cm hypervascular mass left supraclavicular favoring metastatic neoplasm. Chest x-ray reviewed by me shows fullness left supraclavicular. Radiologist interpretation no acute process however soft tissue fullness left supraclavicular region noted. Due to the rapid growth of the left supraclavicular mass over the past 2 weeks, patient's loss of appetite, and pending workup for bilateral lung nodules, she will be admitted. She is agreeable to this plan of care. Case discussed with Dr. Nicholas. - Lab Data Result diagrams: 03/17/22 12:57 03/17/22 13:45 Lab Results 03/17/22 03/17/22 Range/Units 12:57 13:45 WBC 6.3 (3.8-10.6) k/uL RBC 5.06 (3.80-5.40) m/uL Hgb 15.7 (11.4-16.0) gm/dL Hct 44.1 (34.0-46.0) % MCV 87.1 (80.0-100.0) fL MCH 31.1 (25.0-35.0) pg MCHC 35.7 (31.0-37.0) g/dL RDW 12.3 (11.5-15.5) % Plt Count 327 (150-450) k/uL MPV 7.4 Neutrophils % 68 % Lymphocytes % 14 % Monocytes % 11 % Eosinophils % 2 % Basophils % 1 % Neutrophils # 4.3 (1.3-7.7) k/uL Lymphocytes # 0.9 L (1.0-4.8) k/uL Monocytes # 0.7 (0-1.0) k/uL Eosinophils # 0.1 (0-0.7) k/uL Basophils # 0.1 (0-0.2) k/uL Sodium 131 L (137-145) mmol/L Potassium 3.7 (3.5-5.1) mmol/L Chloride 99 (98-107) mmol/L Carbon Dioxide 28 (22-30) mmol/L Anion Gap 4 mmol/L BUN 16 (7-17) mg/dL Creatinine 0.57 (0.52-1.04) mg/dL Est GFR (CKD-EPI)AfAm >90 (>60 ml/min/1.73 sqM) Est GFR (CKD-EPI)NonAf >90 (>60 ml/min/1.73 sqM) Glucose 110 H (74-99) mg/dL Calcium 8.5 (8.4-10.2) mg/dL Total Bilirubin 0.7 (0.2-1.3) mg/dL AST 19 (14-36) U/L ALT 14 (4-34) U/L Alkaline Phosphatase 115 (38-126) U/L Total Protein 5.9 L (6.3-8.2) g/dL Albumin 3.4 L (3.5-5.0) g/dL Disposition Clinical Impression: Palpable mass of neck, Lung nodules Disposition: ADMITTED IP TO THIS [facility] Decision Date: 03/17/22 Decision Time: 14:17
[2022-03-17] MEDS ORDERED: MORPHINE SULFATE 4 MG/ML SYRINGE IV STA (12:50)
[2022-03-17] MEDS ORDERED: SODIUM CHLORIDE 0.9% 1,000 ML IV ONE (12:51)
[2022-03-17 13:12] LABS: Basophils # (A) 0.1 k/uL (0-0.2); Basophils % (A) 1 %; Eosinophils # (A) 0.1 k/uL (0-0.7); Eosinophils % (A) 2 %; HCT 44.1 % (34.0-46.0); HGB 15.7 gm/dL (11.4-16.0); Lymphocytes # (A) 0.9 k/uL (1.0-4.8); Lymphocytes % (A) 14 %; MCH 31.1 pg (25.0-35.0); MCHC 35.7 g/dL (31.0-37.0); MCV 87.1 fL (80.0-100.0); Mean Platelet Volume 7.4; Monocytes # (A) 0.7 k/uL (0-1.0); Monocytes % (A) 11 %; Neutrophils # (A) 4.3 k/uL (1.3-7.7); Neutrophils % (A) 68 %; Platelet Count 327 k/uL (150-450); RBC 5.06 m/uL (3.80-5.40); RDW 12.3 % (11.5-15.5); WBC 6.3 k/uL (3.8-10.6)
--- NOTE | 2022-03-17 13:40 | XR ---
EXAMINATION TYPE: XR chest 2V DATE OF EXAM: 03/17/2022 COMPARISON: 03/05/2022 TECHNIQUE: PA and lateral views submitted. HISTORY: Palpable mass FINDINGS: The lungs are clear and there is no pneumothorax, pleural effusion, or focal pneumonia. Hyperinflat ion of the lungs. Hypertrophic and degenerative changes of the spine. Surgical clips in the gallbladd er fossa. IMPRESSION: 1. No acute process. Correlate for COPD. There is soft tissue fullness in the left supraclavicular re gion with suspected destruction of the medial margin of the left clavicle. Correlate for history of m alignancy.
--- NOTE | 2022-03-17 13:56 | US ---
EXAMINATION TYPE: US thyroid st tissue head/neck DATE OF EXAM: 03/17/2022 COMPARISON: CTA chest March 05, 2022 CLINICAL HISTORY: Left supraclavicular mass. palpable left supraclavicular area for 2 weeks, getting larger in size scanned area of concern, left supraclavicular area, complex hypoechoic area = 4.1 x 3.3 x 4.3cm Findings correlated with recent CT. There is lytic destruction of the proximal left clavicle with pablo rounding soft tissue mass correlating with ultrasound findings. IMPRESSION: Solid 4.1 cm hypervascular mass left supraclavicular region favors metastatic neoplasm. Advise oncology referral. Imaging guided sampling for tissue diagnosis can be performed if desired.
[2022-03-17 14:09] LABS: ALT 14 U/L (4-34); AST 19 U/L (14-36); African American GFR (CKD) >90 (>60 ml/min/1.73 sqM); Albumin 3.4 g/dL (3.5-5.0); Alkaline Phosphatase 115 U/L (38-126); Anion Gap 4 mmol/L; Blood Urea Nitrogen 16 mg/dL (7-17); Calcium 8.5 mg/dL (8.4-10.2); Carbon Dioxide 28 mmol/L (22-30); Chloride 99 mmol/L (98-107); Glucose 110 mg/dL (74-99); Non-African American GFR(CKD) >90 (>60 ml/min/1.73 sqM); Potassium 3.7 mmol/L (3.5-5.1); Sodium 131 mmol/L (137-145); Total Bilirubin 0.7 mg/dL (0.2-1.3); Total Protein 5.9 g/dL (6.3-8.2)
[2022-03-17] MEDS ORDERED: traMADol 50 MG TAB PO PRN (14:17)
[2022-03-17] MEDS ORDERED: ACETAMINOPHEN TAB 325 MG TAB PO PRN (14:17)
[2022-03-17] MEDS ORDERED: NALOXONE 0.4 MG/ML 1 ML VIAL IV PRN (14:17)
[2022-03-17] MEDS: SODIUM CHLORIDE 0.9% 1,000 ML IV SCH (14:36)
[2022-03-17] MEDS ORDERED: ALPRAZolam 0.5 MG TAB PO STA (14:45)
--- NOTE | 2022-03-17 19:50 | P.HPIM ---
History of Present Illness This is a pleasant 62 years old female with past medical history of steoarthritis (OA), Rheumatoid Arthritis . She was recently discharged from the hospital about 10 days ago for multiple small pulmonary nodules and ongoing nicotine dependence. Patient says she quit smoking since discharge. [employer] evaluated her last admission showing elevated troponin with no evidence of acute coronary syndrome. This stem presents because of worsening mass in the left nack base of the proximal half of the left clavicular area. Small surface,firm, non-mobile She denies any other complaints, no chest pain or dyspnea or coughing. She denies alcohol or illicit drugs Vitals are normal Labs reviewed she has unremarkable CBC. Sodium 131. Rest of liver enzymes and BMP is unremarkable Head and neck ultrasound: Solid 4.1 cm hypervascular mass left supraclavicular region favor metastatic neoplasm. Chest x-ray: No acute process. Chronic for COPD. Patient started on normal saline and admitted with oncology team consult Review of Systems Review of systems CONSTITUTIONAL: No fever, no malaise, no fatigue. HEENT: No recent visual problems or hearing problems. Denied any sore throat. CARDIOVASCULAR: No orthopnea, PND, no palpitations, no syncope. PULMONARY: No shortness of breath, no cough, no hemoptysis. GASTROINTESTINAL: No diarrhea, no nausea, no vomiting, no abdominal pain. Normoactive bowel sounds. NEUROLOGICAL: No headaches, no weakness, no numbness. HEMATOLOGICAL: Denies any bleeding or petechiae. GENITOURINARY: Denies any burning micturition, frequency, or urgency. MUSCULOSKELETAL/RHEUMATOLOGICAL: Denies any joint pain, swelling, or any muscle pain. ENDOCRINE: Denies any polyuria or polydipsia. Past Medical History Past Medical History: Osteoarthritis (OA), Rheumatoid Arthritis (RA) Additional Past Medical History / Comment(s): hypokalemia; DJD History of Any Multi-Drug Resistant Organisms: None Reported Past Surgical History: Cholecystectomy Past Anesthesia/Blood Transfusion Reactions: No Reported Reaction Past Psychological History: No Psychological Hx Reported Smoking Status: Former smoker Past Alcohol Use History: None Reported Past Drug Use History: Marijuana Additional Drug Use History / Comment(s): quit smoking march 2022 - Past Family History Father Family Medical History: No Reported History Medications and Allergies Home Medications Medication Instructions Recorded Confirmed Type Albuterol Sulfate [Ventolin HFA] 2 puff INHALATION RT-Q6H PRN 03/05/22 03/17/22 History Gabapentin [Neurontin] 600 mg PO TID 03/05/22 03/17/22 History Meloxicam [Mobic] 15 mg PO DAILY 03/05/22 03/17/22 History methocarbamoL [Robaxin] 500 mg PO Q8H PRN 03/05/22 03/17/22 History Aspirin 81 mg PO DAILY #30 tab 03/07/22 03/17/22 Rx Allergies Allergy/AdvReac Type Severity Reaction Status Date / Time celecoxib [From Celebrex] Allergy Rash/Hives Verified 03/17/22 14:26 Physical Exam Vitals: Vital Signs Temp Pulse Pulse Resp BP BP Pulse Ox 03/17/22 15:52 99.0 F 92 18 134/85 97 03/17/22 15:20 98.0 F 84 16 129/89 98 03/17/22 11:42 98.8 F 123 H 22 134/76 98 Intake and Output 03/17/22 03/17/22 03/17/22 06:59 14:59 22:59 Intake Total 225 Balance 225 Intake: Intake, IV Titration 225 Amount Sodium Chloride 0.9% 1, 225 000 ml @ 75 mls/hr IV . [id number] [facility] Rx#:[id number] Other: Weight 58.513 kg 57.5 kg GENERAL: The patient is alert and oriented x3, not in any acute distress. Well developed, well nourished. -HEENT: Pupils are round and equally reacting to light. EOMI. No scleral icterus. No conjunctival pallor. Normocephalic, atraumatic. No pharyngeal erythema. No thyromegaly. left superclavicular mass about 4 cm in diamete r.smoothl surface,firm, non-mobile CARDIOVASCULAR: S1 and S2 present. No murmurs, rubs, or gallops. PULMONARY: Chest is clear to auscultation, no wheezing or crackles. ABDOMEN: Soft, nontender, nondistended, normoactive bowel sounds. No palpable organomegaly. MUSCULOSKELETAL: No joint swelling or deformity. EXTREMITIES: No cyanosis, clubbing, or pedal edema. NEUROLOGICAL: Gross neurological examination did not reveal any focal deficits. SKIN: No rashes. no petechiae. Results CBC & Chem 7: 03/17/22 12:57 11/15/22 13:45 Labs: Abnormal Lab Results - Last 24 Hours (Table) 03/17/22 03/17/22 Range/Units 12:57 13:45 Lymphocytes # 0.9 L (1.0-4.8) k/uL Sodium 131 L (137-145) mmol/L Glucose 110 H (74-99) mg/dL Total Protein 5.9 L (6.3-8.2) g/dL Albumin 3.4 L (3.5-5.0) g/dL Thrombosis Risk Factor Assmnt - Choose All That Apply Any of the Below Risk Factors Present?: Yes Each Factor Represents 1 point: Abnormal pulmonary function (COPD) Other Risk Factors: Yes Each Risk Factor Represents 2 Points: Age 61-74 years Other congenital or acquired thrombophilia - If yes, enter type in comment: No Thrombosis Risk Factor Assessment Total Risk Factor Score: 3 Thrombosis Risk Factor Assessment Level: Moderate Risk Assessment and Plan Assessment: Left proximal supraclavicular mass about 2 inches in diameter. Multiple pulmonary nodules Recent history of nicotine dependence History of osteoarthritis History of rheumatoid arthritis Plan: This is a pleasant 62 years old female with left neck mass Oncology team were consulted. Patient will need tissue diagnosis Labs and medication were reviewed.. Continue same treatment. Continue with symptomatic treatment. Resume home medication. Monitor lytes and vitals. DVT and GI prophylaxis. Further recommendations as per clinical course of the patient DVT prophylaxis: Subcutaneous heparin GI Prophylaxis: Pepcid Prognosis is guarded
[2022-03-18] MEDS: methocarbamoL 500 MG TAB PO PRN ×2 (05:12→13:13)
[2022-03-18] MEDS: GABAPENTIN 300 MG CAP PO SCH ×3 (05:12→21:45)
[2022-03-18] MEDS: SODIUM CHLORIDE 0.9% 1,000 ML IV SCH ×2 (05:18→18:03)
[2022-03-18] MEDS ORDERED: PANTOPRAZOLE 40 MG/10 ML VIAL IV SCH (09:00)
[2022-03-18] MEDS: HEPARIN SODIUM,PORCINE/PF 5,000 UNIT/0.5 ML SYRINGE SQ SCH ×2 (09:15→20:51)
[2022-03-18] MEDS: ALPRAZolam 0.5 MG TAB PO PRN ×2 (12:29→21:45)
[2022-03-18 12:58] LABS: Prothrombin Time 10.8 sec (9.0-12.0)
--- NOTE | 2022-03-18 20:11 | P.PN ---
Subjective This is a pleasant 62 years old female with past medical history of steoarthritis (OA), Rheumatoid Arthritis . She was recently discharged from the hospital about 10 days ago for multiple small pulmonary nodules and ongoing nicotine dependence. Patient says she quit smoking since discharge. [employer] evaluated her last admission showing elevated troponin with no evidence of acute coronary syndrome. This stem presents because of worsening mass in the left nack base of the proximal half of the left clavicular area. Small surface,firm, non-mobile She denies any other complaints, no chest pain or dyspnea or coughing. She denies alcohol or illicit drugs Vitals are normal Labs reviewed she has unremarkable CBC. Sodium 131. Rest of liver enzymes and BMP is unremarkable Head and neck ultrasound: Solid 4.1 cm hypervascular mass left supraclavicular region favor metastatic neoplasm. Chest x-ray: No acute process. Chronic for COPD. Patient started on normal saline and admitted with oncology team consult 03/18/2022 Patient with known new complaints Discussed the case with Dr. antoine today and he recommended biopsy with IR team Labs and vitals are reviewed Objective - Vital Signs Vital signs: Vital Signs Temp 98.3 F 03/18/22 11:24 Pulse 84 03/18/22 11:24 Resp 18 03/18/22 11:24 BP 131/82 03/18/22 11:24 Pulse Ox 97 03/18/22 11:24 FiO2 Intake & Output 03/17/22 03/18/22 03/18/22 18:59 06:59 18:59 Intake Total 225 600 Balance 225 600 Weight 57.5 kg Intake: Intake, IV Titration 225 600 Amount Sodium Chloride 0.9% 1, 225 600 000 ml @ 75 mls/hr IV . [id number] [facility] Rx#:[id number] Other: Voiding Method Toilet - Exam GENERAL: The patient is alert and oriented x3, not in any acute distress. Well developed, well nourished. -HEENT: Pupils are round and equally reacting to light. EOMI. No scleral icterus. No conjunctival pallor. Normocephalic, atraumatic. No pharyngeal erythema. No thyromegaly. left superclavicular mass about 4 cm in diameter.smoothl surface,firm, non-mobile CARDIOVASCULAR: S1 and S2 present. No murmurs, rubs, or gallops. PULMONARY: Chest is clear to auscultation, no wheezing or crackles. ABDOMEN: Soft, nontender, nondistended, normoactive bowel sounds. No palpable organomegaly. MUSCULOSKELETAL: No joint swelling or deformity. EXTREMITIES: No cyanosis, clubbing, or pedal edema. NEUROLOGICAL: Gross neurological examination did not reveal any focal deficits. SKIN: No rashes. no petechiae. - Labs CBC & Chem 7: 03/17/22 12:57 03/17/22 13:45 Assessment and Plan Assessment: Left proximal supraclavicular mass about 2 inches in diameter. Multiple pulmonary nodules Recent history of nicotine dependence History of osteoarthritis History of rheumatoid arthritis Plan: This is a pleasant 62 years old female with left neck mass Oncology team were consulted. Patient will need tissue diagnosis. I am consulted for biopsy today Labs and medication were reviewed.. Continue same treatment. Continue with symptomatic treatment. Resume home medication. Monitor lytes and vitals. DVT and GI prophylaxis. Further recommendations as per clinical course of the patient DVT prophylaxis: Subcutaneous heparin GI Prophylaxis: Pepcid Prognosis is guarded
--- NOTE | 2022-03-18 21:38 | P.CONS ---
History of Present Illness - Reason for Consult Consult date: 03/18/22 neck mass, lung nodules Requesting physician: Cliff Valdez - Chief Complaint neck pain - History of Present Illness Mrs. Tom is a very pleasant female with a PHM of arthritis and nicotine dependence hospitalized about 2 weeks ago with c/o BLE swelling and pain around the clavicle. She had elevated d-dimer, CTA neg for PE but bilateral pulm nodules were noted, no LAD, doppler of the lower extremities was neg for DVT. Plans were for outpt imaging in the near future. She returns to hospital with c/o lump on her left clavicle, 1st noted about 3 weeks ago, has persisted and gotten larger, it causes her pain when she uses neck or chest muscles. Denies any other palpable masees, dysphagia, voice changes, SOB, unusual cough or changes in bowel or bladder. She reports a 10lb wt loss in the recent few weeks. Smoker since she was young, quit for 15 years, restarted about 2 years ago and quit after her last ER visit. Denies ETOH. She is adopted so she is not certain of any family Hx, She has never had a colonoscopy, she had a mammogram in the last year, no personal Hx of cancer. Review of Systems 10 point ROS is neg except as stated in HPI Past Medical History Past Medical History: Osteoarthritis (OA), Rheumatoid Arthritis (RA) Additional Past Medical History / Comment(s): hypokalemia; DJD History of Any Multi-Drug Resistant Organisms: None Reported Past Surgical History: Cholecystectomy Past Anesthesia/Blood Transfusion Reactions: No Reported Reaction Past Psychological History: No Psychological Hx Reported Smoking Status: Former smoker Past Alcohol Use History: None Reported Past Drug Use History: Marijuana Additional Drug Use History / Comment(s): quit smoking march 2022 - Past Family History Father Family Medical History: No Reported History Medications and Allergies Home Medications Medication Instructions Recorded Confirmed Type Albuterol Sulfate [Ventolin HFA] 2 puff INHALATION RT-Q6H PRN 03/05/22 03/17/22 History Gabapentin [Neurontin] 600 mg PO TID 03/05/22 03/17/22 History Meloxicam [Mobic] 15 mg PO DAILY 03/05/22 03/17/22 History methocarbamoL [Robaxin] 500 mg PO Q8H PRN 03/05/22 03/17/22 History Aspirin 81 mg PO DAILY #30 tab 03/07/22 03/17/22 Rx Allergies Allergy/AdvReac Type Severity Reaction Status Date / Time celecoxib [From Celebrex] Allergy Rash/Hives Verified 03/17/22 14:26 Physical Exam Vitals: Vital Signs Temp Pulse Pulse Resp BP BP Pulse Ox 03/18/22 05:22 97.7 F 94 16 118/77 96 03/17/22 19:56 98.2 F 91 16 114/74 98 03/17/22 15:52 99.0 F 92 18 134/85 97 03/17/22 15:20 98.0 F 84 16 129/89 98 Intake and Output 03/17/22 03/18/22 03/18/22 22:59 06:59 14:59 Intake Total 225 600 Balance 225 600 Intake: Intake, IV Titration 225 600 Amount Sodium Chloride 0.9% 1, 225 600 000 ml @ 75 mls/hr IV . [id number] [facility] Rx#:[id number] Other: Voiding Method Toilet Weight 57.5 kg - Constitutional General appearance: average body habitus, cooperative, no acute distress - EENT Eyes: anicteric sclerae, EOMI ENT: hearing grossly normal, normal oropharynx - Neck 3cm hard, fixed LN at medial aspect of the lt clavicle, not sore to touch, pain with movement Neck: lymphadenopathy - Respiratory Respiratory: bilateral: CTA - Cardiovascular Rhythm: regular Heart sounds: normal: S1, S2 Abnormal Heart Sounds: no systolic murmur, no diastolic murmur, no rub, no S3 Gallop, no S4 Gallop, no click, no other leg Peripheral Edema: bilateral: None - Gastrointestinal General gastrointestinal: no absent bowel sounds, no decreased bowel sounds, no distended, no hepatomegaly, no hyperactive bowel sounds, normal bowel sounds, no organomegaly, no rigid, no scaphoid, soft, no splenomegaly, no tenderness, no umbilical hernia, no ventral hernia - Integumentary Integumentary: normal - Neurologic Neurologic: CNII-XII intact - Musculoskeletal Musculoskeletal: strength equal bilaterally - Psychiatric Psychiatric: A&O x's 3, appropriate affect, intact judgment & insight Results CBC & Chem 7: 03/17/22 12:57 03/17/22 13:45 Labs: Abnormal Lab Results - Last 24 Hours (Table) 03/17/22 03/17/22 Range/Units 12:57 13:45 Lymphocytes # 0.9 L (1.0-4.8) k/uL Sodium 131 L (137-145) mmol/L Glucose 110 H (74-99) mg/dL Total Protein 5.9 L (6.3-8.2) g/dL Albumin 3.4 L (3.5-5.0) g/dL Comments: US neck, chest, reports reviewed Chest x-ray: report reviewed CT scan - chest: report reviewed Venous US: report reviewed Assessment and Plan (1) Palpable mass of neck Current Visit: Yes Status: Acute Priority: High Code(s): R22.1 - LOCALIZED SWELLING, MASS AND LUMP, NECK SNOMED Code(s): 940058662 (2) Pulmonary nodules Current Visit: Yes Status: Acute Priority: High Code(s): R91.8 - OTHER NONSPECIFIC ABNORMAL FINDING OF LUNG FIELD SNOMED Code(s): 055089490 Plan: Discussed with pt concerning findings. She agrees that she needs a biopsy. Explained that diagnosis, prognosis and treatment options can only be discussed realistically once there is a tissue diagnosis and staging images are obtained Case discussed with IM. Request IR eval and core biopsy of palpable mass Discussed with IR. Review of the images shows soft tissue mass destruction into the clavicle. Core biopsy planned. Pending biopsy results. Further molecular/somatic testing depending on primary. PET that is scheduled, will try to move up. May need MRI brain to complete staging. Will plan for this outpt as well. F/U with Dr. Juvenal lOiver Dr. Attests: I have seen and examined pt, performed H&P, developed impression and plan of care. Discussed with dictator. Agree with documentation, dictated as a scribe.
[2022-03-19] MEDS ORDERED: PANTOPRAZOLE 40 MG TABLET PO SCH (07:30)
--- NOTE | 2022-03-19 07:53 | US ---
ULTRASOUND GUIDED CORE BIOPSY LEFT NECK MASS: CLINICAL HISTORY: Left neck mass FINDINGS: The procedure was explained to the patient. The risks, complications, benefits and alternatives were discussed and any questions were answered. Informed consent was obtained. Patient was placed supin e on the ultrasound table and prepped and draped in the usual sterile fashion. Utilizing a 18 gauge needle, two passes were made into the left . Patient was stable throughout the procedure. Pathology is pending. All elements of maximal barrier and sterile technique were utilized. IMPRESSION: 1. Successful ultrasound guided core biopsy left neck mass.
[2022-03-19] MEDS: GABAPENTIN 300 MG CAP PO SCH ×2 (08:27→16:12)
[2022-03-19] MEDS: HEPARIN SODIUM,PORCINE/PF 5,000 UNIT/0.5 ML SYRINGE SQ SCH (08:27)
[2022-03-19] MEDS: SODIUM CHLORIDE 0.9% 1,000 ML IV SCH (08:28)
[2022-03-19] MEDS: ALPRAZolam 0.5 MG TAB PO PRN (10:37)
[2022-03-19] MEDS: methocarbamoL 500 MG TAB PO PRN (12:49)
[2022-03-19 13:33] VITALS: BP 138/82; PULSE 86; RESP 18; TEMP 98
--- NOTE | 2022-03-19 18:05 | P.PN ---
Subjective Progress Note Date: 03/19/22 Principal diagnosis: Lung nodules, left clavicular soft tissue mass In follow-up today patient is status post biopsy. She has no new physical complaints, she is able to swallow, she is breathing comfortably, she does have the discomfort when she is moving around but nothing unmanageable. She is feeling overwhelmed and anxious. Objective - Vital Signs Vital signs: Vital Signs Temp 98 F 03/19/22 11:30 Pulse 86 03/19/22 11:30 Resp 18 03/19/22 11:30 BP 138/82 03/19/22 11:30 Pulse Ox 97 03/19/22 11:30 FiO2 Intake & Output 03/18/22 03/19/22 03/19/22 18:59 06:59 18:59 Intake Total 590 590 Balance 590 590 Intake: Oral 590 590 Other: Voiding Method Toilet # Voids 2 2 - Constitutional General appearance: Present: average body habitus, cooperative, no acute distress - EENT Eyes: Present: anicteric sclerae, EOMI ENT: Present: hearing grossly normal, normal oropharynx - Respiratory Respiratory: bilateral: CTA - Cardiovascular Rhythm: regular Heart sounds: normal: S1, S2 Abnormal Heart Sounds: Absent: systolic murmur, diastolic murmur, rub, S3 Gallop, S4 Gallop, click, other - Peripheral edema leg Peripheral Edema: bilateral: None - Gastrointestinal General gastrointestinal: Present: normal bowel sounds, soft - Neurologic Neurologic: Present: CNII-XII intact - Musculoskeletal Musculoskeletal: Present: strength equal bilaterally - Psychiatric Psychiatric: Present: A&O x's 3, appropriate affect, intact judgment & insight - Labs CBC & Chem 7: 03/17/22 12:57 03/17/22 13:45 Assessment and Plan (1) Palpable mass of neck Status: Acute Priority: High Code(s): R22.1 - LOCALIZED SWELLING, MASS AND LUMP, NECK SNOMED Code(s): 140851556 (2) Pulmonary nodules Status: Acute Priority: High Code(s): R91.8 - OTHER NONSPECIFIC ABNORMAL FINDING OF LUNG FIELD SNOMED Code(s): 823583419 Plan: Patient is status post biopsy. No complications. Explained that diagnosis, prognosis and treatment options can only be discussed realistically once there is a tissue diagnosis and staging images are obtained. We are pending appt change of PET scan, planning for an MRI. Follow-up to be scheduled once we have all the imaging scheduled. We also discussed further molecular/somatic testing depending on primary. Patient understands that we want to have all this inform ation before she meets with the Oncologist. She is aware that this can take up to 1-1/2-2 weeks. She agrees with the plan. Case was discussed with Attending. Patient is okay from an Oncology standpoint to be discharged once she is cleared by Attending another consulting Physicians. Attests: I have seen and examined pt, performed H&P, developed impression and plan of care. Discussed with dictator. Agree with documentation, dictated as a scribe.
--- NOTE | 2022-03-19 20:24 | P.DS ---
Providers Date of admission: 03/17/22 14:28 Attending physician: Martin Mcdermott Consults: 03/17/22 14:17 Consult Physician Routine Consulting Provider: Sterling Giang Consult Reason/Comments: neck mass, lung nodules Do you want consulting provider notified?: Yes, Notify in am Primary care physician: Physician Nonstaff Hospital Course: Diagnoses: Left proximal supraclavicular mass about 2 inches in diameter. Multiple pulmonary nodules Recent history of nicotine dependence History of osteoarthritis History of rheumatoid arthritis Hospital course: This is a pleasant 62 years old female with past medical history of steoarthritis (OA), Rheumatoid Arthritis . She was recently discharged from the hospital about 10 days ago for multiple small pulmonary nodules and ongoing nicotine dependence. Patient says she quit smoking since discharge. Consulting Services Project Manager evaluated her last admission showing elevated troponin with no evidence of acute coronary syndrome. This stem presents because of worsening mass in the left nack base of the proximal half of the left clavicular area. Small surface,firm, non- mobile.Patient evaluated by oncology team, Patient underwent ultrasound guided biopsy by IR team on 03/19/2022 Oncology team input is appreciated, they discussed the plan of care with the patient in details, please refer to their note. Patient also cleared for discharge by oncology team. When I came to see the patient she told me she is agreeable for discharge and follow-up with Dr. LEANDRO antoine for the follow-up of the tissue biopsy. Patient also relies the possibility of diagnosis of cancer. Also she told me she has appointment with Dr. Pace for follow-up of her history of lung nodules as she states. On the day of discharge she denies chest pain or dyspnea, no GI or urinary complaints. She feels more comfortable. No hopelessness of hopelessness. Patient showed interest of follow-up plan and treatment. Problems and management plan were discussed with the patient and he verbalized understanding and acceptance Patient was found stable and can be discharged home in guarded prognosis however he needs follow-up as an outpatient. Patient was instructed to follow up with PCP within one week and patient agrees Patient says she does not have PCP however he wanted to suggest to names and Dr. Jacob and Dr. Lima suggested for her with contact information provided for her upon her request. Patient was instructed to follow up with Dr. Oliver office within 7-10 days and she agrees. And she will follow up with Dr. Pace as above Physical exam Gen: patient is a AAOx3, no distress -Head and neck: Left supraclavicular mass, but 2 cm smooth surface. CVS: S1-S2, RRR, no murmur Lungs: B/L CTA, no wheezing Abdomen: soft, no distention, no tenderness, positive bowel sounds Extremity: no leg edema or induration Time spent more than 35 minutes Plan - Discharge Summary Discharge Rx Participant: No New Discharge Prescriptions: New ALPRAZolam [Xanax] 0.5 mg PO BID PRN #30 tablet PRN Reason: Anxiety Continue Aspirin 81 mg PO DAILY #30 tab methocarbamoL [Robaxin] 500 mg PO Q8H PRN PRN Reason: Pain Albuterol Sulfate [Ventolin HFA] 2 puff INHALATION RT-Q6H PRN PRN Reason: Shortness Of Breath Gabapentin [Neurontin] 600 mg PO TID Discontinued Meloxicam [Mobic] 15 mg PO DAILY Discharge Medication List Albuterol Sulfate [Ventolin HFA] 2 puff INHALATION RT-Q6H PRN 03/05/22 [History] Gabapentin [Neurontin] 600 mg PO TID 03/05/22 [History] methocarbamoL [Robaxin] 500 mg PO Q8H PRN 03/05/22 [History] Aspirin 81 mg PO DAILY #30 tab 03/07/22 [Rx] ALPRAZolam [Xanax] 0.5 mg PO BID PRN #30 tablet 03/19/22 [Rx] Follow up Appointment(s)/Referral(s): Maximo Jacob MD [STAFF PHYSICIAN] - 1 Week (PCP) Raulito Gonzalez MD [REFERRING] - 1 Week (PCP) Dylan Oliver MD [STAFF PHYSICIAN] - 10 Days (OFFICE WILL CALL PT WITH APPT DATE AND TIME) Jai Pace DO [Doctor of Osteopathic Medicine] - 04/03/22 1:45 pm (you have appointment on 03/19/2022 as you infomred the medical team ) Activity/Diet/Wound Care/Special Instructions: Resume previous diet Activity as tolerated Follow-up the biopsy results with your primary care doctor and oncology's Dr. Oliver Discharge Disposition: HOME SELF-CARE
== END 2022-03-19 16:26 | disposition home or self-care (01) | DRG 607 ==
LOC: EC 11:19 → 5NMEDONC 14:28
PROVIDERS: ADMIT Internal Medicine; ATTEND Internal Medicine
PROC: 0JB53ZX Excision of Left Neck Subcutaneous Tissue and Fascia, Percutaneous Approach, Diagnostic (ICD-10-PCS; principal; 2022-03-17)
DX: R22.1 Localized swelling, mass and lump, neck (principal); M06.9 Rheumatoid arthritis, unspecified; R91.8 Other nonspecific abnormal finding of lung field; F17.210 Nicotine dependence, cigarettes, uncomplicated; J44.9 Chronic obstructive pulmonary disease, unspecified; R13.10 Dysphagia, unspecified; Z79.1 Long term (current) use of non-steroidal anti-inflammatories (NSAID); Z79.82 Long term (current) use of aspirin; Z79.899 Other long term (current) drug therapy; Z88.8 Allergy status to other drugs, medicaments and biological substances; Z90.49 Acquired absence of other specified parts of digestive tract
CPT/HCPCS: 20206; 36415; 71046; 76536; 76942; 80053; 85025; 85610; 96361; 96374; 99285

== ENCOUNTER 2022-03-25 17:02 | Emergency (ER) | payer OTHER ==
[2022-03-25 17:17] VITALS: RESP 18; TEMP 98.4
[2022-03-25 17:43] LABS: Appearance,Urine Cloudy (Clear); Bacteria,Urine Rare /hpf; Bilirubin,Urine 1+ (Negative); Blood,Urine Trace (Negative); Budding Yeast,Urine Rare /hpf; Color,Urine Yellow; Glucose,Urine (UA) Negative (Negative); Hyaline Casts,Urine 1 /lpf (0-2); Ketones,Urine 1+ (Negative); Leukocyte Esterase,Urine Large (Negative); Mucus,Urine Moderate /hpf; Nitrite,Urine Negative (Negative); PH, Urine 5.5 (5.0-8.0); Protein,Urine Trace (Negative); RBC,Urine 4 /hpf (0-5); Specific Gravity,Urine 1.024 (1.001-1.035); Squamous Epithelial Cell,Urine 6 /hpf (0-4); WBC,Urine 29 /hpf (0-5)
[2022-03-25] MEDS ORDERED: LORazepam 2 MG/ML INJ IV STA (19:02)
[2022-03-25] MEDS ORDERED: SODIUM CHLORIDE 0.9% 1,000 ML IV STA (19:27)
--- NOTE | 2022-03-25 19:27 | ED ---
General Adult HPI - General Chief complaint: Urogenital Stated complaint: Back pain,[place] Urine Time Seen by Provider: 03/25/22 18:44 Source: patient Mode of arrival: ambulatory - History of Present Illness Initial comments: Patient is a 62-year-old female presenting to the emergency room with complaints of right-sided flank pain worse with movement and palpation that is not responding to muscle relaxers and ibuprofen at home. She is also concerned regarding sudden change of her urine to orange color today. She denies any dysuria or hematuria. She has not had any abnormal urine color in the past but does admit to significant weight loss recently with decreased appetite, nausea without vomiting and concern for dehydration. She denies any abdominal pain, chest pain not directly related to recent biopsy and left neck/clavicle region mass, altered mental status, fevers or chills. She has been in the hospital often and recently underwent a biopsy of her left neck mass and is soon to undergo a PET scan for further evaluation of metastatic cancer; she has not r eceived her biopsy results yet. She is very anxious regarding her recent workup and concern for cancer. She recent hospitalization and workup for her mass she had no significant past medical history other than arthritis including osteo-and rheumatoid along which is tentatively joint disease. - Related Data Home Medications Medication Instructions Recorded Confirmed Albuterol Sulfate [Ventolin HFA] 2 puff INHALATION RT-Q6H PRN 03/05/22 03/17/22 Gabapentin [Neurontin] 600 mg PO TID 03/05/22 03/17/22 methocarbamoL [Robaxin] 500 mg PO Q8H PRN 03/05/22 03/17/22 Previous Rx's Medication Instructions Recorded Aspirin 81 mg PO DAILY #30 tab 03/07/22 ALPRAZolam [Xanax] 0.5 mg PO BID PRN #30 tablet 03/19/22 Ondansetron Odt [Zofran Odt] 4 mg PO Q8HR PRN 7 Days #21 tab 03/25/22 Allergies Allergy/AdvReac Type Severity Reaction Status Date / Time celecoxib [From Celebrex] Allergy Rash/Hives Verified 03/25/22 17:16 Review of Systems ROS Statement: Those systems with pertinent positive or pertinent negative responses have been documented in the HPI. ROS Other: All systems not noted in ROS Statement are negative. Past Medical History Past Medical History: Osteoarthritis (OA), Rheumatoid Arthritis (RA) Additional Past Medical History / Comment(s): hypokalemia; DJD History of Any Multi-Drug Resistant Organisms: None Reported Past Surgical History: Cholecystectomy Additional Past Surgical History / Comment(s): bx of enlarged neck lymph node Past Anesthesia/Blood Transfusion Reactions: No Reported Reaction Past Psychological History: No Psychological Hx Reported Smoking Status: Former smoker Past Alcohol Use History: None Reported Past Drug Use History: Marijuana - Past Family History Father Family Medical History: No Reported History General Exam General appearance: alert, in no apparent distress, anxious Head exam: Present: atraumatic, normocephalic, normal inspection Eye exam: Present: normal appearance, PERRL, EOMI. Absent: scleral icterus, conjunctival injection, periorbital swelling ENT exam: Present: normal exam, mucous membranes moist Neck exam: Present: other (Large hard mass lower left neck spanning into the clavicular region with ecchymosis noted secondary to biopsy along with healing biopsy puncture site). Absent: lymphadenopathy Respiratory exam: Present: normal lung sounds bilaterally. Absent: respiratory distress, wheezes, rales, rhonchi, stridor Cardiovascular Exam: Present: regular rate, tachycardia (Mild), normal heart sounds. Absent: systolic murmur, diastolic murmur, rubs, gallop, clicks GI/Abdominal exam: Present: soft, normal bowel sounds. Absent: distended, tenderness, guarding, rebound, rigid Back exam: Present: full ROM (Slightly limited by pain and stiffness but full), tenderness, CVA tenderness (R) Neurological exam: Present: alert, oriented X3, CN II-XII intact Psychiatric exam: Present: anxious Skin exam: Present: warm, dry, intact. Absent: rash Course Vital Signs 03/25/22 03/25/22 17:13 21:42 Temperature 98.4 F Pulse Rate 114 H 93 Respiratory 18 18 Rate Blood Pressure 134/70 132/73 O2 Sat by Pulse 97 98 Oximetry Medical Decision Making - Medical Decision Making 62-year-old female presenting with right-sided flank pain primarily more towards the upper buttocks region worse with movement along with orange colored urine. Recent hospitalization old records reviewed at length including recent biopsy results. Biopsy results available and patient desiring to be told results. 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 Patient with increased anxiety after results the patient was highly anticipatory of malignancy results. Emotional support given. Will also give IV Ativan. Will monitor response of IV Ativan prior to giving analgesics. Previous records reveal no recent CT of the abdomen or pelvis given flank pain with orange colored urine will obtain CT of the abdomen and pelvis without contrast. Will obtain CBC along with CMP and urinalysis. Will also give 1 L fluid bolus. Tolerated IV Ativan while still with continued pain and hemodynamically stable will give 4 mg of morphine IV. CBC stable. CMP revealed slightly elevated alk phos at 128 liver enzymes normal. Sodium slightly low at 127 chloride also slightly low at 92 labs drawn previous to IV fluid bolus. BUN stable. Coags normal. Urinalysis reveals large leukocytes with rare bacteria and yeast. Suspect at end urinary tract infection and no dysuria will defer antibiotic treatment at this time. Will give dose of oral diflucan to treat yeast infection. CT abdomen and pelvis image interpreted by me shows left renal stone. No free fluid in the abdomen. Cholecystectomy clips are intact without any identified liver masses. Radiologist report also reviewed. No indication for further laboratory testing or diagnostic imaging at this time. She has medications for her anxiety and muscle relaxers available to her. Will provide Zofran starter pack to utilize for nausea as needed. Will discharge home in stable condition with follow-up with her primary care provider and oncologist for continued workup of her metastatic cancer treatment for yeast in urine as above. Case discussed with Dr. Barrios. - Lab Data Result diagrams: 03/25/22 19:19 03/25/22 19:19 Lab Results 03/25/22 03/25/22 03/25/22 Range/Units 17:17 19:19 19:19 WBC 8.1 (3.8-10.6) k/uL RBC 4.56 (3.80-5.40) m/uL Hgb 13.7 (11.4-16.0) gm/dL Hct 38.7 (34.0-46.0) % MCV 84.9 (80.0-100.0) fL MCH 30.1 (25.0-35.0) pg MCHC 35.4 (31.0-37.0) g/dL RDW 12.2 (11.5-15.5) % Plt Count 333 (150-450) k/uL MPV 9.3 Neutrophils % 75 % Lymphocytes % 11 % Monocytes % 10 % Eosinophils % 1 % Basophils % 1 % Neutrophils # 6.1 (1.3-7.7) k/uL Lymphocytes # 0.9 L (1.0-4.8) k/uL Monocytes # 0.8 (0-1.0) k/uL Eosinophils # 0.1 (0-0.7) k/uL Basophils # 0.1 (0-0.2) k/uL PT 11.0 (9.0-12.0) sec INR 1.0 (<1.2) Sodium (137-145) mmol/L Potassium (3.5-5.1) mmol/L Chloride (98-107) mmol/L Carbon Dioxide (22-30) mmol/L Anion Gap mmol/L BUN (7-17) mg/dL Creatinine (0.52-1.04) mg/dL Est GFR (CKD-EPI)AfAm (>60 ml/min/1.73 sqM) Est GFR (CKD-EPI)NonAf (>60 ml/min/1.73 sqM) Glucose (74-99) mg/dL Calcium (8.4-10.2) mg/dL Total Bilirubin (0.2-1.3) mg/dL AST (14-36) U/L ALT (4-34) U/L Alkaline Phosphatase (38-126) U/L Total Protein (6.3-8.2) g/dL Albumin (3.5-5.0) g/dL Urine Color Yellow Urine Appearance Cloudy H (Clear) Urine pH 5.5 (5.0-8.0) Ur Specific [place] 1.024 (1.001-1.035) Urine Protein Trace H (Negative) Urine Glucose (UA) Negative (Negative) Urine Ketones 1+ H (Negative) Urine Blood Trace H (Negative) Urine Nitrite Negative (Negative) Urine Bilirubin 1+ H (Negative) Urine Urobilinogen 2.0 (<2.0) mg/dL Ur Leukocyte Esterase Large H (Negative) Urine RBC 4 (0-5) /hpf Urine WBC 29 H (0-5) /hpf Ur Squamous Epith Cells 6 H (0-4) /hpf Urine Bacteria Rare H (None) /hpf Hyaline Casts 1 (0-2) /lpf Urine Mucus Moderate H (None) /hpf Urine Yeast (Budding) Rare H (None) /hpf 03/25/22 Range/Units 19:19 WBC (3.8-10.6) k/uL RBC (3.80-5.40) m/uL Hgb (11.4-16.0) gm/dL Hct (34.0-46.0) % MCV (80.0-100.0) fL MCH (25.0-35.0) pg MCHC (31.0-37.0) g/dL RDW (11.5-15.5) % Plt Count (150-450) k/uL MPV Neutrophils % % Lymphocytes % % Monocytes % % Eosinophils % % Basophils % % Neutrophils # (1.3-7.7) k/uL Lymphocytes # (1.0-4.8) k/uL Monocytes # (0-1.0) k/uL Eosinophils # (0-0.7) k/uL Basophils # (0-0.2) k/uL PT (9.0-12.0) sec INR (<1.2) Sodium 127 L (137-145) mmol/L Potassium 4.0 (3.5-5.1) mmol/L Chloride 92 L (98-107) mmol/L Carbon Dioxide 27 (22-30) mmol/L Anion Gap 8 mmol/L BUN 14 (7-17) mg/dL Creatinine 0.58 (0.52-1.04) mg/dL Est GFR (CKD-EPI)AfAm >90 (>60 ml/min/1.73 sqM) Est GFR (CKD-EPI)NonAf >90 (>60 ml/min/1.73 sqM) Glucose 108 H (74-99) mg/dL Calcium 9.0 (8.4-10.2) mg/dL Total Bilirubin 1.0 (0.2-1.3) mg/dL AST 20 (14-36) U/L ALT 13 (4-34) U/L Alkaline Phosphatase 128 H (38-126) U/L Total Protein 6.2 L (6.3-8.2) g/dL Albumin 3.7 (3.5-5.0) g/dL Urine Color Urine Appearance (Clear) Urine pH (5.0-8.0) Ur Specific [place] (1.001-1.035) Urine Protein (Negative) Urine Glucose (UA) (Negative) Urine Ketones (Negative) Urine Blood (Negative) Urine Nitrite (Negative) Urine Bilirubin (Negative) Urine Urobilinogen (<2.0) mg/dL Ur Leukocyte Esterase (Negative) Urine RBC (0-5) /hpf Urine WBC (0-5) /hpf Ur Squamous Epith Cells (0-4) /hpf Urine Bacteria (None) /hpf Hyaline Casts (0-2) /lpf Urine Mucus (None) /hpf Urine Yeast (Budding) (None) /hpf - Radiology Data Radiology results: report reviewed, image reviewed CT of the abdomen and pelvis without contrast impression by radiologist nonobstructing left calculi. No renal obstruction. Ureters are not dilated. Normal appendix. Sigmoid diverticulosis without diverticulitis. Disposition Clinical Impression: Yeast UTI, Right flank pain Disposition: HOME SELF-CARE Instructions (If sedation given, give patient instructions): Urinary Tract Infection in Women (ED) Additional Instructions: Please stay well hydrated avoiding caffeinated products. [place] diet encouraged if nausea persists. May utilize Zofran starter pack for nausea as needed and obtain prescription after holiday for Zofran as needed. Please follow-up with your primary care provider and oncologist in regards to treatment for your newly diagnosed metastatic adenocarcinoma. Please return to the Emergency Department if symptoms worsen or any other concerns. Prescriptions: Ondansetron Odt [Zofran Odt] 4 mg PO Q8HR PRN 7 Days #21 tab PRN Reason: Nausea Is patient prescribed a controlled substance at d/c from ED?: No Referrals: None,Stated [Primary Care Provider] - 1-2 days Time of Disposition: 21:43
[2022-03-25] MEDS ORDERED: MORPHINE SULFATE 4 MG/ML SYRINGE IVP STA (19:28)
[2022-03-25 19:59] LABS: Basophils # (A) 0.1 k/uL (0-0.2); Basophils % (A) 1 %; Eosinophils # (A) 0.1 k/uL (0-0.7); Eosinophils % (A) 1 %; HCT 38.7 % (34.0-46.0); HGB 13.7 gm/dL (11.4-16.0); Lymphocytes # (A) 0.9 k/uL (1.0-4.8); Lymphocytes % (A) 11 %; MCH 30.1 pg (25.0-35.0); MCHC 35.4 g/dL (31.0-37.0); MCV 84.9 fL (80.0-100.0); Mean Platelet Volume 9.3; Monocytes # (A) 0.8 k/uL (0-1.0); Monocytes % (A) 10 %; Neutrophils # (A) 6.1 k/uL (1.3-7.7); Neutrophils % (A) 75 %; Platelet Count 333 k/uL (150-450); RBC 4.56 m/uL (3.80-5.40); RDW 12.2 % (11.5-15.5); WBC 8.1 k/uL (3.8-10.6)
[2022-03-25 20:14] LABS: ALT 13 U/L (4-34); AST 20 U/L (14-36); African American GFR (CKD) >90 (>60 ml/min/1.73 sqM); Albumin 3.7 g/dL (3.5-5.0); Alkaline Phosphatase 128 U/L (38-126); Anion Gap 8 mmol/L; Blood Urea Nitrogen 14 mg/dL (7-17); Carbon Dioxide 27 mmol/L (22-30); Chloride 92 mmol/L (98-107); Glucose 108 mg/dL (74-99); Non-African American GFR(CKD) >90 (>60 ml/min/1.73 sqM); Sodium 127 mmol/L (137-145); Total Protein 6.2 g/dL (6.3-8.2)
--- NOTE | 2022-03-25 20:52 | CT ---
EXAMINATION TYPE: CT abdomen pelvis wo con DATE OF EXAM: 03/25/2022 COMPARISON: None HISTORY: flank pain, abnormal urine analysis. CT DLP: 418.3 mGycm Automated exposure control for dose reduction was used. Images obtained from the diaphragm to the floor the pelvis with no contrast. Lung bases are clear. No pleural effusion. Heart size is normal. No pericardial effusion. Liver splee n stomach pancreas appear intact. There are clips from cholecystectomy. The bile duct are not dilated . There is no adrenal mass. Kidneys show normal size and contour. No hydronephrosis. There is 3 mm calc ulus upper pole left kidney. No retroperitoneal adenopathy. Ureters are not dilated. The bladder dist ends smoothly. No inguinal hernia. No free fluid in the pelvis. Uterus is anteverted. There are numer ous sigmoid diverticula. No diverticulitis. The appendix is posterior and medial and appears normal. There is no mesenteric edema. No ascites or free air. No sign of a bowel obstruction. There is a mild lumbar levoscoliosis. There are spondylotic changes in the lumbar spine. No compression fracture. Bony pelvis appears intact. There is acetabula r spurring bilaterally. No hip fracture. Arthritic changes more noticeable in the left hip. IMPRESSION: Nonobstructing left renal calculus. No renal obstruction seen. Ureters not dilated. Normal appendix. Sigmoid diverticulosis.
[2022-03-25] MEDS ORDERED: ONDANSETRON 4 MG ODT STARTER PACK 2 TAB BTL PO STA (21:27)
[2022-03-25] MEDS ORDERED: FLUCONAZOLE 150 MG TAB PO STA (21:27)
[2022-03-25 21:43] VITALS: BP 132/73; PULSE 93
== END 2022-03-25 21:59 | disposition home or self-care (01) ==
LOC: EC 17:02
DX: N39.0 Urinary tract infection, site not specified (principal); K57.30 Diverticulosis of large intestine without perforation or abscess without bleeding; M06.9 Rheumatoid arthritis, unspecified; M19.90 Unspecified osteoarthritis, unspecified site; Z87.891 Personal history of nicotine dependence; Z90.49 Acquired absence of other specified parts of digestive tract; Z88.6 Allergy status to analgesic agent; Z79.891 Long term (current) use of opiate analgesic
CPT/HCPCS: 99284 ×2; 96374 ×2; 96375 ×2; 96361 ×2; 36415; 80053; 85025; 85610; 81001; 74176; J2060; J2270; S0119

== ENCOUNTER → 2022-04-03 | Outpatient (CLI) | payer OTHER ==
--- NOTE | 2022-04-05 13:12 | PE ---
EXAMINATION TYPE: PET CT fusion skull to thigh DATE OF EXAM: 04/03/2022 CLINICAL INDICATION:Female, 62 years old with history of C76.0 Head/Neck Cancer; TECHNIQUE: Following the intravenous administration of 9.6 mCi of F-18 FDG, whole body images are p erformed from the skull base to the midthigh. Images are reviewed on the computer in the coronal, ax ial, and sagittal planes. Reconstructed rotating images are created on independent workstation and r eviewed on the computer. A non-contrast CT is performed in conjunction with the PET scan. Glucose l evel 135 mg/dL COMPARISON: CT CT and pelvis 03/22/2022, CT angiogram chest 03/05/2022. PET/CT None, FINDINGS: Mediastinal SUV mean is 1.6 . Hepatic parenchyma SUV mean is 2.6. SKULL BASE AND NECK: * Right clavicular lymph node max SUV 8.1 measuring 9 mm in short axis. * Left supraclavicular 4 mm lymph node max SUV 4.3. * No suspicious FDG activity within the mucosa within the pharynx identified. CHEST, MEDIASTINUM, AND HILAR REGION: * Mediastinal right low paratracheal lymph node max SUV 7.8 measuring 16 mm in short axis. Additiona l mediastinal lymph nodes are also present with increased FDG activity. * Right pulmonary hilum lymph node max SUV 5.5 * Right upper lobe pulmonary nodule measuring 8 mm Max SUV 3.4. ABDOMEN AND PELVIS: * Right adrenal gland mass measuring up to 3.1 cm Max SUV 10.4 * Portacaval lymph node max SUV 6.8 measuring 8 mm. * Focal liver uptake anteriorly max SUV 4.8 and more posteriorly max SUV 7.5 OSSEOUS STRUCTURES: Scattered metabolic activity seen within the osseous structures some of which have expansile soft tis bernard * Destructive left medial clavicle lesion measuring 5.6 x 4.2 cm in max SUV 15.2 * Left mid clavicle focus max SUV 4.6. * Left humeral head max SUV 6.8, * C3 vertebral body max SUV 11.3 percent appears to encase the right vertebral artery/transverse for amen. * T4 posterior elements max SUV is 6.8 * T5 vertebral body max SUV 4.2, * T6 right transverse process max SUV 4.5. * T12 vertebral body max SUV 10.3. * T12 posterior elements max SUV 4.8. * Left proximal humerus axis V 13.7. * Left posterior acetabulum max SUV 10.9. * Right iliac bone near the sacral iliac joint max SUV 13.9 expansile destructive soft tissue noted here * Left sacrum max SUV 12.[address]: Scattered clonic diverticula. Moderate stool burden within the rectum. Appendix is visualiz ed and normal. Scattered atherosclerosis of the arterial vasculature including the coronary arteries and carotid bifurcations. IMPRESSION: 1. Scattered hypermetabolic foci involving the osseous structures, bilateral supraclavicular lymph n odes, right upper lobe pulmonary nodule, mediastinal lymph nodes, right adrenal gland, abdominal lymp h nodes, and liver. No pharynx abnormal FDG activity to suggest primary within the head and neck von on. 2. Left proximal femur hypermetabolic focus which could predispose this patient to the left femur pa thologic fracture. Consider orthopedic consultation and nonweightbearing.
== END | disposition home or self-care (01) ==
LOC: RADPETMAIN 14:59
PROVIDERS: ATTEND Internal Medicine
DX: C76.0 Malignant neoplasm of head, face and neck (principal); R59.0 Localized enlarged lymph nodes; R91.1 Solitary pulmonary nodule
CPT/HCPCS: 78815; A9552

== ENCOUNTER → 2022-04-19 | Outpatient (CLI) | payer OTHER ==
--- NOTE | 2022-04-19 15:43 | MR ---
EXAMINATION TYPE: MR brain wo/w con DATE OF EXAM: 04/19/2022 2:59 PM CLINICAL INDICATION:Female, 62 years old with history of [id number]; COMPARISON: None TECHNIQUE: Multi planar, multi sequence imaging was performed through the brain including: T1, T2, In version recovery, susceptibility weighted imaging and gradient echo imaging and Diffusion weighted im aging. The patient was then given intravenous contrast and multi planar, T1 fat-saturation images wer e obtained. IV Contrast: 5.5 cc Gadavist FINDINGS: Abnormal enhancement is seen within the calvarium , examples include: somewhat ring-enhanci ng lesion along the right calvarium measuring up to 1.4 cm on the right with focus on the right poste rior skull measuring 6 mm. Small area measuring 6 mm best appreciated on sagittal the left posterior aspect. Another area of patchy ill-defined enhancement on the left calvarium measuring up to 13 mm. A dditional area of abnormal signal is seen within the C2 vertebral body with postcontrast enhancement. No definitive intra-axial abnormal enhancement. The terrazas-white junctions, ventricular system, basal c isterns appear unremarkable. Diffusion-weighted imaging shows no evidence of restricted diffusion to suggest acute/subacute infarct. Intracranial arterial flow voids are maintained. Midline structures s how no abnormality. Scattered foci of high T2 signal intensity are seen within the periventricular wh ite matter. The susceptibility weighted images do not reveal any evidence for micro-hemorrhage. Paranasal sinuses and mastoid air cells: Clear Visualized orbits: Orbital contents are intact. IMPRESSION: 1. Osseous metastatic disease with multiple areas of abnormal enhancement within the calvarium in th e C3 vertebral body. No definitive intracranial metastatic disease. 2. No evidence of acute/subacute infarct. 3. Nonspecific white matter changes, likely related to small vessel ischemic disease
== END | disposition home or self-care (01) ==
LOC: RADMRIMAIN 13:45
PROVIDERS: ATTEND Internal Medicine
DX: C34.11 Malignant neoplasm of upper lobe, right bronchus or lung (principal); C79.51 Secondary malignant neoplasm of bone; R90.82 White matter disease, unspecified
CPT/HCPCS: 70553; A9585

== ENCOUNTER 2022-05-08 13:00 | Emergency (ER) | payer OTHER ==
[2022-05-08 13:12] VITALS: BP 106/51; PULSE 116; RESP 16; TEMP 98.1
[2022-05-08 13:47] LABS: Basophils % (A) 0 %; Eosinophils % (A) 1 %; HCT 33.5 % (34.0-46.0); HGB 10.9 gm/dL (11.4-16.0); Hypochromasia Slight; Lymphocytes # (A) 0.6 k/uL (1.0-4.8); Lymphocytes % (A) 7 %; MCH 27.7 pg (25.0-35.0); MCHC 32.5 g/dL (31.0-37.0); MCV 85.2 fL (80.0-100.0); Mean Platelet Volume 7.3; Monocytes # (A) 0.6 k/uL (0-1.0); Monocytes % (A) 8 %; Neutrophils # (A) 6.7 k/uL (1.3-7.7); Neutrophils % (A) 82 %; Platelet Count 457 k/uL (150-450); RBC 3.93 m/uL (3.80-5.40); RDW 13.6 % (11.5-15.5); WBC 8.2 k/uL (3.8-10.6)
[2022-05-08 14:08] LABS: ALT 50 U/L (4-34); AST 43 U/L (14-36); African American GFR (CKD) >90 (>60 ml/min/1.73 sqM); Alkaline Phosphatase 129 U/L (38-126); Anion Gap 10 mmol/L; Blood Urea Nitrogen 12 mg/dL (7-17); Calcium 9.3 mg/dL (8.4-10.2); Carbon Dioxide 30 mmol/L (22-30); Chloride 90 mmol/L (98-107); Glucose 105 mg/dL (74-99); Non-African American GFR(CKD) >90 (>60 ml/min/1.73 sqM); Potassium 4.2 mmol/L (3.5-5.1); Sodium 130 mmol/L (137-145); Total Bilirubin 0.7 mg/dL (0.2-1.3); Total Protein 5.9 g/dL (6.3-8.2)
--- NOTE | 2022-05-08 14:10 | ED ---
Back Pain HPI - General Source: patient, family, RN notes reviewed Limitations: no limitations <Yehuda Garcia - Last Filed: 05/08/22 14:09> - General Source: patient, family, RN notes reviewed Limitations: no limitations <Rajesh Turk - Last Filed: 05/08/22 20:39> - General Chief Complaint: Back Pain/Injury Stated Complaint: Left Sided Pain Time Seen by Provider: 05/08/22 14:09 - History of Present Illness Initial Comments: 62-year-old female presents emergency Department chief complaint of right flank pain. Patient states the pain is increasing she did take 2 Chester prior arrival with family for symptoms. She states she feels small wound. Patient does have stage IV lung cancer seen Dr. santos. Patient denies any dysuria hematuria patient that she was constipated. Patient states that she is scheduled started chemotherapy. Patient has slight nausea no chest pain no pleuritic pain denies trauma (Yehuda Garcia) Patient is a pleasant 62-year-old female presenting to the emergency Department with right lower back/flank discomfort. Onset of symptoms was yesterday. Discomfort is currently 8/10. Patient does have history of stage IV lung cancer. Patient has recently completed radiation treatment and pending chemotherapy. Patient also has some discomfort left upper back with respirations. Discomfort does increase both areas with movement. No history of previous discomfort areas. No dyspnea. (Rajesh Turk) - Related Data Home Medications Medication Instructions Recorded Confirmed Albuterol Sulfate [Ventolin HFA] 2 puff INHALATION RT-Q6H PRN 03/05/22 05/08/22 methocarbamoL [Robaxin] 500 mg PO Q8H PRN 03/05/22 05/08/22 Docusate [Colace] 100 mg PO BID 05/08/22 05/08/22 HYDROcodone/APAP 5-325MG [Chester 1 tab PO QID PRN 05/08/22 05/08/22 5-325] LORazepam [Ativan] 0.5 mg PO TID PRN 05/08/22 05/08/22 Ondansetron Odt [Zofran Odt] 8 mg PO Q8H PRN 05/08/22 05/08/22 polyethylene glycoL 3350 [Miralax] 17 gm PO BID 05/08/22 05/08/22 Previous Rx's Medication Instructions Recorded Aspirin 81 mg PO DAILY #30 tab 03/07/22 Allergies Allergy/AdvReac Type Severity Reaction Status Date / Time celecoxib [From Celebrex] Allergy Rash/Hives Verified 03/25/22 17:16 Review of Systems ROS Other: All systems not noted in ROS Statement are negative. <Yehuda Garcia - Last Filed: 05/08/22 14:09> ROS Other: All systems not noted in ROS Statement are negative. Constitutional: Denies: fever Eyes: Denies: eye pain ENT: Denies: ear pain Respiratory: Reports: as per HPI. Denies: cough Cardiovascular: Denies: chest pain Endocrine: Denies: fatigue Gastrointestinal: Denies: abdominal pain Genitourinary: Denies: dysuria Musculoskeletal: Reports: as per HPI, back pain <Rajesh Turk - Last Filed: 05/08/22 20:39> ROS Statement: Those systems with pertinent positive or pertinent negative responses have been documented in the HPI. Past Medical History Past Medical History: Cancer, Osteoarthritis (OA), Rheumatoid Arthritis (RA) Additional Past Medical History / Comment(s): hypokalemia; DJD History of Any Multi-Drug Resistant Organisms: None Reported Past Surgical History: Adenoidectomy, Cholecystectomy, Tonsillectomy Additional Past Surgical History / Comment(s): bx of enlarged neck lymph node Past Anesthesia/Blood Transfusion Reactions: No Reported Reaction Past Psychological History: No Psychological Hx Reported Smoking Status: Former smoker Past Alcohol Use History: None Reported Past Drug Use History: Marijuana - Past Family History Father Family Medical History: No Reported History <Yehuda Garcia - Last Filed: 05/08/22 14:09> General Exam Limitations: no limitations <Yehuda Garcia - Last Filed: 05/08/22 14:09> Limitations: no limitations General appearance: in no apparent distress Head exam: Present: normocephalic Eye exam: Present: normal appearance Neck exam: Present: other (Large mass left lower neck/upper chest) Respiratory exam: Present: normal lung sounds bilaterally. Absent: chest wall tenderness Cardiovascular Exam: Present: regular rate, normal rhythm Expanded Peripheral pulses: 2+: Radial (R), Radial (L), Posterior Tibialis (R), Posterior Tibialis (L) GI/Abdominal exam: Present: soft. Absent: tenderness Extremities exam: Present: normal inspection. Absent: pedal edema, calf tenderness Neurological exam: Present: alert. Absent: motor sensory deficit Psychiatric exam: Present: normal affect, normal mood Skin exam: Present: normal color <Rajesh Turk - Last Filed: 05/08/22 20:39> Course <Rajesh Turk - Last Filed: 05/08/22 20:39> Vital Signs 05/08/22 13:05 Temperature 98.1 F Pulse Rate 116 H Respiratory 16 Rate Blood Pressure 106/51 O2 Sat by Pulse 95 Oximetry - Reevaluation(s) Reevaluation #1: 05/08/22 19:10 EKG interpreted by myself Sinus tachycardia 110. OH 122. QRS 94. QT 289. QTc 358. Normal axis. Normal QRS. No acute ST change. (Rajesh Turk) Medical Decision Making - Lab Data Result diagrams: 05/08/22 13:14 05/08/22 13:14 <Yehuda Garcia - Last Filed: 05/08/22 14:09> - Lab Data Result diagrams: 05/08/22 13:14 05/08/22 13:14 - Radiology Data Radiology results: report reviewed (CT Naseem chest shows no pulmonary embolism. Large left clavicle mass with obstruction. Left fourth rib and thoracic vertebrae lesions right upper lobe subpleural mass slightly increased. CT abdomen shows liver lesions and adrenal lesion bony metastases. ) <Rajesh Turk - Last Filed: 05/08/22 20:39> - Medical Decision Making Patient reevaluated and is feeling much better. Patient would like to be discharged home. Patient updated on results including CT results and need for close follow-up. Was pt. sent in by a medical professional or institution (, PA, FOOD SCIENCE PROFESSOR, urgent care, hospital, or prison...) When possible be specific @ -[No] Did you speak to anyone other than the patient for history (EMS, parent, family, police, friend...)? What history was obtained from this source @ -[Family help provide history including patient's history of lung cancer and metastasis] Did you review nursing and triage notes (agree or disagree)? Why? @ -[I reviewed and agree with nursing and triage notes] Were old charts reviewed (outside hosp., previous admission, EMS record, old EKG, old radiological studies, urgent care reports/EKG's, prison records)? Report findings @ -[No old charts were reviewed] Differential Diagnosis (chest pain, altered mental status, abdominal pain women, abdominal pain men, vaginal bleeding, weakness, fever, dyspnea, syncope, headache, dizziness, GI bleed, back pain, seizure, CVA, palpatations, mental health)? @ -Differential Back Pain: Strain, zoster, cauda equina syndrome, epidural abscess, vertebral osteomyelitis, discitis, fracture, subluxation, disc herniation, DJD, spinal stenosis, dissection, AAA, pancreatitis, peptic ulcer disease, pyelonephritis, kidney stone, this is not meant to be an all-inclusive list. EKG interpreted by me (3pts min.). @ -[As above] X-rays interpreted by me (1pt min.). @ -As above CT interpreted by me (1pt min.). @ -Reviewed report U/S interpreted by me (1pt. min.). @ -[None done] What testing was considered but not performed or refused? (CT, X-rays, U/S, labs)? Why? @ -[None] What meds were considered but not given or refused? Why? @ -[None] Did you discuss the management of the patient with other professionals (professionals i.e. , PA, FOOD SCIENCE PROFESSOR, lab, RT, psych nurse, manager social, music video producer, teacher, banking officer, director of casework)? Give summary @ -[No] Was smoking cessation discussed for >3mins.? @ -[No] Was critical care preformed (if so, how long)? @ -[No] Were there social determinants of health that impacted care today? How? (Homelessness, low income, unemployed, alcoholism, drug addiction, transportation, low edu. Level, literacy, decrease access to med. care, halfway, rehab)? @ -[No] Was there de-escalation of care discussed even if they declined (Discuss DNR or withdrawal of care, Hospice)? DNR status @ -[No] What co-morbidities impacted this encounter? (DM, HTN, Smoking, COPD, CAD, Cancer, CVA, ARF, Chemo, Hep., AIDS, mental health diagnosis, sleep apnea, morbid obesity)? @ -[None] Was patient admitted / discharged? Hospital course, mention meds given and route, prescriptions, significant lab abnormalities, going to OR and other pertinent info. @ -Patient reevaluated and improved and requesting discharge home. Undiagnosed new problem with uncertain prognosis? @ -[No] Drug Therapy requiring intensive monitoring for toxicity (Heparin, Nitro, Insulin, Cardizem)? @ -[No] Were any procedures done? @ -[No] Diagnosis/symptom? @ -Back pain Acute, or Chronic, or Acute on Chronic? @ -Acute Uncomplicated (without systemic symptoms) or Complicated (systemic symptoms)? @ -Uncomplicated Side effects of treatment? @ -[No] Exacerbation, Progression, or Severe Exacerbation? @ -[No] Poses a threat to life or bodily function? How? (Chest pain, [place], [place], pneumonia, PE, COPD, DKA, ARF, appy, cholecystitis, CVA, Diverticulitis, Homicidal, Suicidal, threat to staff... and all critical care pts) @ -[No] (Rajesh Turk) - Lab Data Lab Results 05/08/22 05/08/22 Range/Units 13:14 13:14 WBC 8.2 (3.8-10.6) k/uL RBC 3.93 (3.80-5.40) m/uL Hgb 10.9 L (11.4-16.0) gm/dL Hct 33.5 L (34.0-46.0) % MCV 85.2 (80.0-100.0) fL MCH 27.7 (25.0-35.0) pg MCHC 32.5 (31.0-37.0) g/dL RDW 13.6 (11.5-15.5) % Plt Count 457 H (150-450) k/uL MPV 7.3 Neutrophils % 82 % Lymphocytes % 7 % Monocytes % 8 % Eosinophils % 1 % Basophils % 0 % Neutrophils # 6.7 (1.3-7.7) k/uL Lymphocytes # 0.6 L (1.0-4.8) k/uL Monocytes # 0.6 (0-1.0) k/uL Eosinophils # 0.0 (0-0.7) k/uL Basophils # 0.0 (0-0.2) k/uL Hypochromasia Slight Sodium 130 L (137-145) mmol/L Potassium 4.2 (3.5-5.1) mmol/L Chloride 90 L (98-107) mmol/L Carbon Dioxide 30 (22-30) mmol/L Anion Gap 10 mmol/L BUN 12 (7-17) mg/dL Creatinine 0.50 L (0.52-1.04) mg/dL Est GFR (CKD-EPI)AfAm >90 (>60 ml/min/1.73 sqM) Est GFR (CKD-EPI)NonAf >90 (>60 ml/min/1.73 sqM) Glucose 105 H (74-99) mg/dL Calcium 9.3 (8.4-10.2) mg/dL Total Bilirubin 0.7 (0.2-1.3) mg/dL AST 43 H (14-36) U/L ALT 50 H (4-34) U/L Alkaline Phosphatase 129 H (38-126) U/L Total Protein 5.9 L (6.3-8.2) g/dL Albumin 3.0 L (3.5-5.0) g/dL - Radiology Data Interpreted by me: Chest x-ray shows disruptive left clavicular lesion (Rajesh Turk) Disposition <Yehuda Garica - Last Filed: 05/08/22 14:09> Is patient prescribed a controlled substance at d/c from ED?: No Time of Disposition: 20:39 <Rajesh Turk - Last Filed: 05/08/22 20:39> Clinical Impression: Back pain, Metastatic lung cancer (metastasis from lung to other site) Disposition: HOME SELF-CARE Condition: Stable Instructions (If sedation given, give patient instructions): Acute Low Back Pain (ED) Additional Instructions: Please do follow-up to primary care physician and oncologist on Wednesday. Have them review CT results. Return for uncontrolled pain, weakness, worsening symptoms or other concerns. Referrals: Sterling Giang MD [STAFF PHYSICIAN] - 1-2 days Omar Tomlin MD [STAFF PHYSICIAN] - 1-2 days
--- NOTE | 2022-05-08 14:41 | XR ---
EXAMINATION TYPE: XR chest 2V DATE OF EXAM: 05/08/2022 COMPARISON: 03/17/2022 TECHNIQUE: PA and lateral views submitted. HISTORY: Pain FINDINGS: The lungs are clear and there is no pneumothorax, pleural effusion, or focal pneumonia. Nodular pro minence of the right periventricular region. Vague nodularity right upper lobe measuring 1.44 cm. Vag ue density left medial lung apex. This correlates with destructive left clavicular lesion. IMPRESSION: 1. No acute process. 2. Destructive left clavicular lesion. 3. Right upper lobe pulmonary nodule with suspected right paratracheal lymphadenopathy.
[2022-05-08] MEDS ORDERED: HYDROmorphone 1 MG/ML 1 ML SYRINGE IVP STA (19:07)
--- NOTE | 2022-05-08 20:16 | CT ---
EXAMINATION TYPE: CT angio chest DATE OF EXAM: 05/08/2022 COMPARISON: PET CT scan April 03, 2022 HISTORY: lung CA SOB CT DLP: 885.4 mGycm Automated exposure control for dose reduction was used. CONTRAST: Performed with IV Contrast, patient injected with 100 mL of Isovue 370. Images obtained from the thoracic inlet to the diaphragm with the IV contrast. There are Three-D post processed images. Heart size is normal. No pericardial effusion. There is no evidence of filling defe ct in the pulmonary arteries. There are multiple enlarged mediastinal lymph nodes that measure up to 3 cm. There is 2 cm right bron chial lymph node. No pleural effusion. There is 1.4 cm subpleural noncalcified nodule in the anterior right upper lobe slightly increased. There is heterogeneity in the liver with multiple areas of low attenuation. There is 5.4 cm right adr enal mass. There is a soft tissue mass in the anterior left upper chest with destruction of the media l end of the left clavicle. The mass measures 6 cm. There is an expansile mass involving the lateral left fourth rib that measures 3 cm. There is some destructive changes in the thoracic spine at T12 an d T5 vertebra with mild compression fracture. IMPRESSION: No evidence of pulmonary embolism. Large left clavicle mass with bone destruction. There is also left fourth rib and thoracic vertebral body lesions consistent with metastatic disease. Right upper lobe subpleural mass slightly increased. Mediastinal and bronchial adenopathy. Right adrenal mass. Hepatic metastatic disease. There is progre ssion of the bone lesions compared to the old exam.
--- NOTE | 2022-05-08 20:21 | CT ---
EXAMINATION TYPE: CT abdomen pelvis w con DATE OF EXAM: 05/08/2022 COMPARISON: Right flank pain. Lung cancer. HISTORY: right posterior flank pain h/o lung CA CT DLP: 885.4 mGycm Automated exposure control for dose reduction was used. CONTRAST: Performed with IV Contrast, patient injected with 100 mL of Isovue 370. Images obtained from the diaphragm to the floor the pelvis with the IV contrast. There is 4.5 cm right adrenal mass. There are multiple hypodense masses in the liver up to 4 cm. Sple en is intact. The stomach is intact. No evidence of pancreatic mass. The bile ducts are not dilated. There are clips from cholecystectomy. Kidneys show satisfactory contrast opacification. No hydronephrosis. Ureters are not dilated. No retr operitoneal adenopathy. Bladder distends smoothly. No pelvic mass. No free fluid in the pelvis. There is a 8 cm destructive lesion involving the right ilium adjacent to the sacroiliac joint. There is large soft tissue component extending posteriorly. There is 2 cm lytic lesion in the posterior asp ect left acetabulum. There is T12 osteolytic lesion with 25% compression fracture. There is no bowel obstruction. No mesenteric edema. No ascites or free air. IMPRESSION: Multiple liver lesions consistent with metastatic disease. Large right adrenal mass consistent with m etastatic disease. Destructive bone lesions as above in the right ilium and T12 and left acetabulum consistent with meta static disease. There is progression of the bone lesions compared to the old exam.
== END 2022-05-08 21:22 | disposition home or self-care (01) ==
LOC: EC 13:00
DX: M54.9 Dorsalgia, unspecified (principal); C34.90 Malignant neoplasm of unspecified part of unspecified bronchus or lung; C78.7 Secondary malignant neoplasm of liver and intrahepatic bile duct; M19.90 Unspecified osteoarthritis, unspecified site; Z87.891 Personal history of nicotine dependence; F12.90 Cannabis use, unspecified, uncomplicated; Z79.1 Long term (current) use of non-steroidal anti-inflammatories (NSAID); Z88.6 Allergy status to analgesic agent
CPT/HCPCS: 36415; 93005; 80053; 85025; 71046; 71275; 74177; 99284; 96374; J1170; Q9967; 96361; 96375; 96376